=== PATIENT | female | born 2000 | race Caucasian/White ===

== ENCOUNTER 2024-11-11 16:34 | Outpatient (REF) | payer OTHER, MEDICARE, MEDICAID, SELFPAY ==
--- OUTSIDE RECORDS SUMMARY | 2024-11-11 16:42 | XMS_ITS | Encounter Summary ---
Author Organization [employer] Address [address] [place] [address] 7 [place] [address] Care Team Providers Care Audit Director Name Role Phone Ivy Mantilla NP Primary Care Provider [phone] Encounter Details Date Type Department Care Team ([facility] st Contact Info) Description 08/05/[address] [facility] [address] [place] [address] Ivy Mantilla NP [address] [place], [place] [phone] Social History Tobacco Use Types Packs/Day Years Used Date Smoking Tobacco: Never Smokeless Tobacco: Never Alcohol Use Standard Drinks/Week Comments Never 0 (1 standard drink = 0.6 oz pur e alcohol) Alcohol Answer Date Recorded How often do you have a drink containing alcohol ? 0 04/12/2024 How many drinks containing a lcohol do you have on a typical day when you are drinking? 0 04/12/2024 How often do you have six or more drinks on one occasion? 0 04/12/2024 Depression Answer Date Recorded Patient Health Questionnaire-9 Score 04/12/2024 Patient Health Questionnaire-9 Score 04/12/2024 Last PHQ-9: Questionnaire Data Not on file 0 04/12/2024 Housing Stability Answer Date Recorded What is your housing situation today? I have mandi veronica 04/12/[address] you li ve. Do you have problems with any of the following? None of the above 04/12/2024 Food Insecurity Answer Date Recorded Within the past 12 months, y ou worried that your food would run out before you got money to buy more: Often true 04/12/2024 Within the past 12 months,th e food you bought just didn't last and you didn't have enough money to get more: Often true Transportation Answer Date Recorded In the past 12 months, has l ack of transportation kept you from medical appts, meetings, work or from getting things needed for daily living? No 04/12/2024 Intimate Partner Violence Answer Date R ecorded Within the last year, have y ou been afraid of your partner or ex-partner? 2 04/12/2024 Within the last year, have y ou been humiliated or emotionally abused in other ways by your partner or ex-partner? 2 Within the last year, have y ou been kicked, hit, slapped, or otherwise physically hurt by your partner or ex-partner? 2 04/12/2024 Within the last year, have y ou been raped or forced to have any kind of sexual activity by your partner or ex-partner? 2 04/12/2024 Utilities Answer Date Recorded In the past 12 months, has t he electric, gas, oil or water company threatened to shut off services in your home? No 04/12/2024 Depression Answer Date Recorded Patient Health Questionnaire-2 Score 4 04/12/2024 Internet Access Answer Date Recorded Internet Access Q1 Yes 04/12/2024 Internet Access Q2 Not on file 04/12/2024 Comments No Sex and Gender Information Value Date Recorded Sex Assigned at Female 05/20/2022 3:57 PM EDT Legal Sex Female 3:57 PM EDT Gender Identity Non-Binary 05/20/2022 3:57 PM EDT Sexual Orientation Something else 05/20/2022 3: 57 PM EDT documented as of this encounter Miscellaneous Notes * Telephone Encounter - Jessica Woo LPN - 08/05/2024 4:38 PM EST Swetha to call Monday and check on referral again. If unable to find vna pt may want to consideramb day stay at hospital for infusions. * Telephone Encounter - Alie Bolden - 08/05/2024 4:18 PM EST Edilia called on vmail from [facility] asking for a call back as she has been speaking with nursing. documented in this encounter Plan of Treatment Upcoming Encounters Date Type Department Care Team (Late st Contact Info) Description 11/18/2024 12:40 PM EDT Office Visit [facility] [address] [place] [phone] Mckay Mueller AGNP [address] [place] [address] documented as of this encounter Visit Diagnoses Not on filedocumented in this encounter Additional Health Concerns Assessment Noted Time PHQ-9 Depression Total Score: 19 024 2:34 PM EDT documented as of this encounter Care Teams Audit Director Relationship Specialty Start Date End Date Ivy Mantilla NP [address] [place] [address] PCP - General Family Medicine 04/12/24 documented as of this encounter
--- OUTSIDE RECORDS SUMMARY | 2024-11-11 16:42 | XMS_ITS | Encounter Summary ---
Author Organization [employer] Address [address] [place] [address] 7 [place] [address] Care Team Providers Care Case Coordinator Name Role Phone Ivy Mantilla NP Primary Care Provider [phone] Encounter Details Date Type Department Care Team ([facility] Contact Info) Description 07/10/[address] [facility] [address] [place] [address] Ivy Mantilla NP [address] [place], [place] [phone] Social History Tobacco Use Types Packs/Day Years [...] the past 12 months, has t he [employer], gas, oil or water company threatened to [...] encounter Miscellaneous Notes * Telephone Encounter - Bernadine Deleon - 07/10/2024 11:30 AM EST Pt all set, appt today with CM * Telephone Encounter - Salena Malin - 07/10/2024 11:15 AM EST Symtoms started yesterday, covid + today. Is looking for either the anti-viral infusion treatment or paxlovid. Please call and advise [phone] documented in this encounter Plan of Treatment Upcoming Encounters Date Type Department Care Team (Late st Contact Info) Description 11/18/2024 12:40 PM EDT Office Visit [address] [address] NovemberMckay AGNP [address] [place] [address] documented as of this encounter Visit Diagnoses Not on filedocumented in this encounter Additional Health Concerns Assessment Noted Time PHQ-9 Depression Total Score: 19 024 2:34 PM EDT documented as of this encounter Care Teams Case Coordinator Relationship Specialty Start Date End Date Ivy Mantilla NP [address] [place] [address] PCP - General Family Medicine 04/12/24 documented as of this encounter
--- OUTSIDE RECORDS SUMMARY | 2024-11-11 16:43 | XMS_ITS | Encounter Summary ---
Author Organization [employer] Address [address] [place] [address] 7 [place] [address] Care Team Providers Care Automotive Parts Counterperson Name Role Phone Ivy Mantilla NP Primary Care Provider [phone] Encounter Details Date Type Department [facility] Description 04/24/2024 Telephone [facility] [address] [place] [address] Ivy Mantilla NP [address] [place], [place] [phone] Social History Tobacco Use Types Packs/Day Years [...] the past 12 months, has t he [employer], gas, oil or water company threatened to [...] encounter Miscellaneous Notes * Telephone Encounter - Britt Keys LPN - 04/25/2024 4:18 PM EDT Spoke to pt stated has josemanuel but there is a lapse in coverage for about a week. Pt is working on it. Eloy from [facility] notified. * Telephone Encounter - Thalia Gold - 04/25/2024 1:39 PM EDT Patient missed a call from nursing please call [phone] * Telephone Encounter - Britt Keys LPN - 04/24/2024 3:27 PM EDT Spoke to eloy from [facility] stated there nursing can place peripheral line she is going to put in request to insurance to see if they will cover for 1 L saline via gravity bag by flow regulator. once a week with there nursing to see if it would be covered by insurance. Will call back once it's run to determine pt benefit from insurance. * Telephone Encounter - Britt Keys LPN - 04/24/2024 3:12 PM EDT Referrals or nursing- Can you please call [facility]? I will be looking to order weekly IV saline infusions with a peripheral IV. I was hoping to confirm that they can do this. I spoke to someone already and they said to start the referral process so that we can find out if they can accept patients from our health center. I do have an order form that I can fill out and send if that will be helpful. Thanks Ivy Mantilla [employer]ICAL DISP[employer]ER Copied from duplicate task * Telephone Encounter - Solange Cruz - 04/24/2024 2:08 PM EDT Eloy left a voicemail following up on insurance referral says it appears to be for [employer] .states in order for them to chk the ins. Coverage they need to know the name of the [employer] andthey need to know the the method of administration . Call back#[phone] documented in this encounter Plan of Treatment Upcoming Encounters Date Type Department Care Team (Late st Contact Info) Description 11/18/2024 12:40 PM EDT Office Visit [address] [phone] Mckay Mueller AGNP [address] [place], [place] [phone] documented as of this encounter Visit Diagnoses Not on filedocumented in this encounter Additional Health Concerns Assessment Noted Time PHQ-9 Depression Total Score: 024 2:34 PM EDT documented as of this encounter Care Teams Automotive Parts Counterperson Relationship Specialty Start Date End Date Ivy Mantilla NP [address] [place] [address] PCP - General Family Medicine 04/12/24 documented as of this encounter
--- OUTSIDE RECORDS SUMMARY | 2024-11-11 16:43 | XMS_ITS | Encounter Summary ---
Author Organization [employer] Address [address] [place] [address] 7 [place] [address] Care Team Providers Care Contestant Coordinator Name Role Phone Ivy Mantilla NP Primary Care Provider [phone] Encounter Details Date Type Department Care Team ([facility] st Contact Info) Description 10/28/[address] [facility] [address] [place] [address] Ivy Mantilla NP [address] [place], [place] [phone] Social History Tobacco Use Types Packs/Day Years [...] encounter Miscellaneous Notes * Telephone Encounter - Thalia Gold - 10/28/2024 3:35 PM EDT Please call and or send over the fax requst they faxed to us for patients cancer screening and hpv vaxs to [phone] documented in this encounter Plan of Treatment Upcoming Encounters Date Type Department Care Team (Late st Contact Info) Description 11/18/2024 12:40 PM EDT Office Visit [facility] [address] [place] [phone] Mckay Mueller AGNP [address] [place], [place] [phone] documented as of this encounter Visit Diagnoses Not on filedocumented in this encounter Additional Health Concerns Assessment Noted Time PHQ-9 Depression Total Score: 19 024 2:34 PM EDT documented as of this encounter Care Teams Contestant Coordinator Relationship Specialty Start Date End Date Ivy Mantilla NP [address] [place] [address] PCP - General Family Medicine 04/12/24 documented as of this encounter
--- OUTSIDE RECORDS SUMMARY | 2024-11-11 16:43 | XMS_ITS | Patient Health Record ---
Author Organization [facility] Address [address] [address] Care Team Providers Care Tallier Name Role Phone Zaynab Tucker Primary Care Provider Alida Galan Unavailable [phone] Allergies Allergen (clinical drug ingredient) Drug/Non Drug Allergy documented on EMR Reaction Allergy Type Onset Date Status medroxyprogesterone Depo-Provera Unknown Drug Allergy Active cefazolin Cefazolin Unknown Drug Allergy Active gentamicin Gentamicin Unknown Drug Allergy Activ e Reason For Referral No Information Medications Medication SIG (Take, Route, Frequency, Duration) Notes Start Date End Date Status Dextroamphetamine Sulfate 10 MG 1 tablet in the morning Orally Once a day Active Famotidine 20 MG 1 tablet at bedtime as needed Orally Once a day Active Fludrocortisone Acetate 0.1 MG 1 tablet Orally Once a day Active Fluoxetine 20 MG 1 capsule Orally Onc e a day Active Sodium Chloride 1 GM as directed Orally Active buPROPion HCl ER (XL) 300 MG 1 tablet in the morning Orally Once a day Active traZODone HCl 100 MG 1 tablet at bedtime Orally Once a day Active Cetirizine HCl 10 MG 1 tablet Orally Onc e a day Active Cholecalciferol 50 MCG (1999 UT) 1 capsule Orally Once a day Active clonazePAM 1 MG 1 tablet Orally Once a day As needed Active Lansoprazole 30 MG 1 capsule before a meal Orally Once a day Active Levothyroxine Sodium 75 MCG 1 tablet in the morning on an empty stomach Orally Once a day Active Prucalopride Succinate 2 MG 1 tablet Ora lly Once a day Active Social History Tobacco Use: Social History Observation Description Date Details (start date - stop date) Former Smoker NA - NA Tobacco Control (Standard) Question Answer Notes Tobacco use: Former smoker Problems Problem Type SNOMED Code ICD Code Onset Dates Problem Status W/U Status Risk Notes Problem Dissociative identity disorder (71450335) 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) Active confirmed Problem Borderline personality disorder (22351982) Borderline personality disorder (F60.3) Active confirmed Problem Posttraumatic stress disorder (37080905) PTSD (post-traumatic stress disorder) (F43.10) Active confirmed Problem Nitza's disease (00073919) 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 Problem Vitamin D deficiency (62519897) Vitamin D insufficiency (E55.9) Active confirmed Problem Dysmenorrhea (485513567) Dysmenorrhea (N94.6) Active confirmed Problem Chest pain (01441745) Chest pain (R07.9) Active confirmed Problem Chronic fatigue syndrome (28345188) Chronic fatigue (R53.82) Active confirmed Problem Gastroesophageal reflux disease without esophagitis (783573846) Gastroesophageal reflux disease without esophagitis (K21.9) Active confirmed Problem Postural orthostatic tachycardia syndrome (disorder) (797547889) POTS (postural orthostatic tachycardia syndrome) (I49.8) Active confirmed Problem Genna-Danlos syndrome (928467553) 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 Plan Of Treatment Next Appt Details Provider Name:Alida diana, 11/21/2024 01:40:00 PM, [address] [place] [address], [facility] [address], [place], [address], Insurance Providers Payer Name Payer Address Payer Phone Subscriber Number Group Number Insured Name Patient Relationship to Insured Coverage Start Date Coverage End Date [facility] [address] [place] [address] [id number] Chanelle Vallecillo Self - patient is the insured [employer] [address] [place], [place] [id number] Chanelle Vallecillo Self - patient is the insured MEDICARE [address] [facility] [id number] Chanelle Vallecillo Self - patient is the insured Medical (General) History Medical History History ICD Code Chest pain R07.9 Chronic fatigue R53.82 Nitza's disease E06.3 PTSD (post-traumatic stress disorder) F4 3.10 Vitamin D insufficiency E55.9 Dissociative identity disorder F44.81 Gastroesophageal reflux disease without esophagitis K21.9 Genna-Danlos syndrome Q79.60 Dysmenorrhea N94.6 POTS (postural orthostatic tachycardia s yndrome) I49.8 Borderline personality disorder F60.3
--- OUTSIDE RECORDS SUMMARY | 2024-11-11 16:43 | XMS_ITS | Encounter Summary ---
Author Organization [employer] Address [address] [place] [address] Care Team Providers Care Drawer Liner Name Role Phone Ivy Mantilla TIN CONTAINER STRAIGHTENER Primary Care Provider [phone] Encounter Details Date Type Department Care Team ([facility] st Contact Info) Description 10/16/2024 Telephone [facility] [address] [address] Ivy Mantilla NP [address] [place] [phone] Social History Tobacco Use Types Packs/Day Years [...] is your housing situation today? I have mnadi veronica 04/12/[address] you [...] the past 12 months, has t he [employer], gas, oil or water company threatened to [...] encounter Miscellaneous Notes * Telephone Encounter - Ivy Mantilla NP - 10/16/2024 11:17 AM EDT See if patient can upload a picture of the site. Red and warm does not seem unusual. They should keep an eye for fever, swelling, pus or bleeding. Is it bandaged? * Telephone Encounter - Britt Keys LPN - 10/16/2024 10:42 AM EDT Pt had port placed yesterday stated area was purple and bruised yesterday but this am area around port is red and warm. Pt has a call out to place that placed port but is concerned about infection. Pt looking for provider recommendations. Pt denies fever or any other symptoms at this time. * Telephone Encounter - Divya Rory - 10/16/2024 10:31 AM EDT Patient is calling due to some concerns with a port that was just placed yesterday . Patient is going to send pictures in there MyChart . documented in this encounter Plan of Treatment Upcoming Encounters Date Type Department Care Team (Late st Contact Info) Description 11/18/2024 12:40 PM EDT Office Visit [facility] [address] [place] [phone] Mckay Mueller AGNP [address] [place] [address] documented as of this encounter Visit Diagnoses Not on filedocumented in this encounter Additional Health Concerns Assessment Noted Time PHQ-9 Depression Total Score: 19 024 2:34 PM EDT documented as of this encounter Care Teams Drawer Liner Relationship Specialty Start Date End Date Ivy Mantilla NP [address] [place] [address] PCP - General Family Medicine 04/12/24 documented as of this encounter
--- OUTSIDE RECORDS SUMMARY | 2024-11-11 16:43 | XMS_ITS ---
Author Organization [facility], [facility] Address [address] [facility] [address] [facility] [address] [place] [address] Care Team Providers Care Toe Puller Name Role Phone Zaynab Tucker Primary Care Provider Diane Alida Bee Unavailable [phone] REASON FOR VISIT new patient Encounters Encounter Location Date Provider Diagnosis [facility], [address] [place] [address] 03/21/2024 Alida Jain Plan Of Treatment Next Appt Details Provider Name:Alida diana, 11/21/2024 01:40:00 PM, [address] [facility], [address], [place], [address], Progress Notes * Nydia VALLECILLOCarinaOB:2000 (24 yo F)Acc No.[id number]:03/21/2024 Progress Notes Patient:?Chanelle VALLECILLO Provider:?Alida Jain D.O. :2000???Age:23 Y???Sex:Female D ate:03/21/2024 Address:[address] [place] [address] Pcp:Zaynab Hester Subjective: * Chief Complaints: * ???1. New patient. * Medical History:? Objective: * Vitals:? Assessment: Plan: * Treatment: * * Electronic signature of Jose Jain DO on 11/11/2024 at 04:43 PM EDT Sign off status: Pending * Provider:?Alida Jain D.O. Date:? Generated for Cheyenne vargas/Kenan/Dariana on:?11/11/2024 04:43 PM EDT
--- OUTSIDE RECORDS SUMMARY | 2024-11-11 16:43 | XMS_ITS | Encounter Summary ---
Author Organization [employer] Address [address] [place] [address] [address] [place] [address] Care Team Providers Care Binding Dyer Name Role Phone Ivy Mantilla NP Primary Care Provider [phone] Encounter Details Date Type Department Care Team ([facility] Contact Info) Description 04/30/2024 Telephone [facility] [address] [place] [address] Ivy Mantilla NP [address] [place], [place] [phone] Social History Tobacco Use Types Packs/Day Years [...] encounter Miscellaneous Notes * Telephone Encounter - Salena Malin - 04/30/2024 12:48 PM EDT Patient left a voicemail indicating they have been in touch with their insurance company and everything is up to date and active and that you may proceed with referral for home health care documented in this encounter Plan of Treatment Upcoming Encounters Date Type Department Care Team (Late st Contact Info) Description 11/18/2024 12:40 PM EDT Office Visit [facility] [address] [place] [address] Mckay Mueller AGNP [address] [place] [address] documented as of this encounter Visit Diagnoses Not on filedocumented in this encounter Additional Health Concerns Assessment Noted Time PHQ-9 Depression Total Score: 19 024 2:34 PM EDT documented as of this encounter Care Teams Binding Dyer Relationship Specialty Start Date End Date Ivy Mantilla NP [address] [place] [address] PCP - General Family Medicine 04/12/24 documented as of this encounter
--- OUTSIDE RECORDS SUMMARY | 2024-11-11 16:44 | XMS_ITS | Encounter Summary ---
Author Organization [employer] Address [address] [place] [address] [address] [place] [address] Care Team Providers Care Precinct Police Sergeant Name Role Phone Ivy Mantilla NP Primary Care Provider Encounter Details Date Type Department Care Team ([facility] Contact Info) Description 09/26/2024 Telephone [facility] [address] [place] [address] Ivy Mantilla NP [address] [place], [place] [phone] Social History Tobacco Use Types Packs/Day Years [...] encounter Miscellaneous Notes * Telephone Encounter - Maki Albert - 09/30/2024 10:14 AM EDT noted * Telephone Encounter - Yuridia Bustamante - 09/26/2024 9:25 AM EST [facility] is calling to decline the referral sent over, reasoning is because they are not contractedwith primary care and they don't do IV fluids. Call back if needed [phone] documented in this encounter Plan of Treatment Upcoming Encounters Date Type Department Care Team (Late st Contact Info) Description 11/18/2024 12:40 PM EDT Office Visit [facility] [address] [place] [phone] NovemberMckay AGNP [address] [place], [place] [phone] documented as of this encounter Visit Diagnoses Not on filedocumented in this encounter Additional Health Concerns Assessment Noted Time PHQ-9 Depression Total Score: 19 024 2:34 PM EDT documented as of this encounter Care Teams Precinct Police Sergeant Relationship Specialty Start Date End Date Ivy Mantilla NP [address] [place] [phone] PCP - General Family Medicine 04/12/24 documented as of this encounter
--- OUTSIDE RECORDS SUMMARY | 2024-11-11 16:44 | XMS_ITS | Clinical Summary ---
Author Organization [employer] Address [address] [place] [address] 7[address] [place] [address] Care Team Providers Care Group Home Paraprofessional Name Role Phone Ivy Mantilla NP Primary Care Provider [phone] Allergies Active Allergy Reactions Criticality Noted Date Comments Cefazolin Hives High 04/12/2024 Medroxyprogesterone Acetate Muscle Pain Medium 024 Worsened hypermobility Gentamicin Hives High 04/12/2024 Medications levothyroxine (Synthroid, Levoxyl) 75 MCG tablet Take 1 tablet by mouth in the morning. Not on Monday09/27/19 20 Active FLUoxetine (PROzac) 20 MG capsule TAKE 1 CAPSULE BY MOUTH EVERY DAY IN THE MORNING Active buPROPion XL (Wellbutrin XL) 300 MG 24 hr tablet Take 1 tablet by mouth Once per day. Active amphetamine-dextro amphetamine (Adderall) 10 MG tablet Take 1 tablet by mouth Once per day. Active lansoprazole (Prevacid) [address] capsule Take 1 capsule by mouth 2 times daily. 09/27/19 20 Active traZODone (Desyrel) 150 MG tablet Take 1 tablet by mouth at bedtime. 09/27/19 20 Active Motegrity 2 MG tablet Take 1 tablet by mouth Once per day. 03/18/20 24 Active famotidine (Pepcid) 20 MG tablet Take 20 mg by mouth 2 times daily. 12/13/19 24 Active clonazePAM (KlonoPIN) 0.5 MG tablet Take 0.5 mg by mouth if needed each day. 03/27/20 24 Active metoclopramide (Reglan) 5 MG tablet TAKE 1-2 TABLETS (5-10 MG TOTAL) BY MOUTH 3 (THREE) TIMES A DAY NEEDED (PRIOR TO MEALS). Active Ubrelvy 100 MG tablet TAKE 1 TABLET BY MOUTH DAILY NEEDED FOR MIGRAINE. 03/15/20 24 Active cyproheptadine (Periactin) 4 MG tablet Take 1 tablet by mouth 2 times daily. 03/27/20 24 Active cromolyn (Gastrocrom) 100 MG/5ML solution USE CONTENTS OF 2 VIALS 3 TIMES DAILY Active gabapentin (Neurontin) 300 MG/6ML solutionIndication s:Other chronic pain Take 3 mL (150 mg) by mouth at bedtime. 450 mL 04/12/20 24 Active cetirizine (ZyrTEC) 10 MG tablet Take 10 mg by mouth 2 times daily. Active Ergocalciferol (VITAMIN D2 PO) Take 2,000 Int'l Units/day by mouth Once per day. Active Magnesium 500 MG capsule Take 500 mg by mouth at bedtime. Active ORAL ELECTROLYTES PO Take 2 capsules by mouth 2 times daily. Vitassium Electrolyte Capsules extra strength 750mg sodium Active fludrocortisone (Florinef) 0.1 MG tabletIndications: POTS (postural orthostatic tachycardia syndrome) Take 1 tablet (0.1 mg) by mouth Once per day. 90 tablet 3 06/25/20 24 Active Lactic Ac-Citric Ac-Pot Bitart (Phexxi) 1.8-1-0.4 % gelIndications:Enc ounter for initial prescription of other contraceptives Insert 1 Application into the vagina if needed each day (insert up to 3hr before intercourse). 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 Justice Mederos, MGB Assessment & Plan (10/04/2024 12:47 PM EDT): - patient continues with supplemental electrolytes - will benefit from IV fluids to maintain fluid volume - encouraged continued use of electric wheelchair - check CBC and CMP to assess metabolic status Assessment & Plan (07/11/2024 1:56 PM EST): - patient will benefit from increased hydration which is needed by IV due to GI issues/ Will send home IV normal saline instructions to [facility] to follow up on referral Assessment & Plan (04/16/2024 8:47 AM EDT): - patient will need reliable intake of fluids and electrolytes, which is current disrupted by severe GI symptoms - they may also benefit from IV fluids, which they would prefer to get at home. - advised that I would look into trying to establish patient with [facility], a home infusion service Autism 04/12/2024 Overview (04/16/2024): Suspected, has high sensory and texture sensitivity Difficulty with social, communication, self-regulation, self-care Assessment & Plan (04/16/2024 9:00 AM EDT): - discussed briefly how this impacts their life - Meek is not interested in a formal diagnosis at this time but feel very confident they are autistic and that it has impacted their health and life dramatically Wheelchair dependent 04/12/2024 Overview (04/12/2024): Has a INTERLOCKER Assessment & Plan (04/16/2024 8:59 AM EDT): Need more INTERLOCKER care, gave some resource suggestions for finding additional INTERLOCKER care Other chronic pain 04/12/2024 Overview (04/16/2024): Primarily associated with EDS Assessment & Plan (07/11/2024 2:02 PM EST): - encouraged to have a longer trial of Gabapentin, starting with 150mg HS, can increase weekly as tolerated Assessment & Plan (04/16/2024 9:00 AM EDT): - 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 - Meek is well established with PT and I encouraged them to continue with this - will initiate Gabapentin as liquid for hopeful ease of digestion, discussed dosing titration options - agree that limiting NSAIDS is probably a good idea given GI issuse - Risks and side effects associated with the plan include potential side effects of Gabapentin such as dry mouth and leg swelling. The patient has been informed of these potential side effects. 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 Ree Tenorio MBA, PT Genetics consult: [facility], Dr. Umair Minor, visit notes from 03/24/2020, 11/19/2020, 08/18/2022 scanned to chart Assessment & Plan (05/19/2024 9:03 PM EDT): - will refer to [facility] for WC eval Gastroesophageal reflux disease 09/27/2019 Assessment & Plan (05/19/2024 9:03 PM EDT): - encouraged to continue with natropath and GI team - PCP to review notes from Dr. Reis regarding IV fluid recommendations. - Gap in insurance coverage noted, affecting referral process. Referral to [facility] needs to be restarted. Message sent to referrals team to reinitiate the referral to [facility]. Major depressive disorder, recurrent episode, mo derate 09/27/2019 Polycystic ovary syndrome 06/07/2019 Gastroparesis 06/03/2019 Overview (04/16/2024): Followed by [facility], Dr. Zuniga Experiences severe symptoms, has been hospitalized in the past Leads to chronic dehydration Assessment & Plan (10/04/2024 12:48 PM EDT): - chronic dehydration secondary to severe gastroparesis to be address with pending home IV fluids - checking labs to ensure metabolic stability - continue with GI specialty care Assessment & Plan (07/11/2024 1:55 PM EST): - constipation is improving with mestinon, will continue and follow up with Dr. Reis as scheduled - will send orders for home IV fluids today per Dr. Reis recommendations of 1L NS three times weekly Assessment & Plan (04/16/2024 8:59 AM EDT): - Meek does have severe gastroparesis which is complicating their other medical problems - they would benefit from sustained hydration status and close GI follow up which they have - they had talked about feeding tubes in the past but not currently being discussed Chronic post-traumatic stress disorder (PTSD) Overview (05/17/2024): Therapist: Aura Recinos [facility], [address] [place] [id number], Anxiety disorder 04/17/2018 Periodic limb movement disorder (PLMD) 8 Nitza's thyroiditis 01/31/2018 Encounters Date Type Department Care Team Description 10/28/[address] [phone] Ivy Mantilla NP 10/16/[address] [address] Ivy Mantilla NP 10/16/[address] [address] Ivy Mantilla NP 10/10/[address] [address] Britt Keys LPN 10/10/[address] [address] Ivy Mantilla NP 10/08/[address] [address] Ivy Mantilla, SUKHI 10/04/[address] [address] Ivy Mantilla, SUKHI 10/03/2024 2:40 PM EDT Office Visit [address] [address] Ivy Mantilla, SUKHI POTS (postural orthostatic tachycardia syndrome) (Primary Dx); Other fatigue; Need for vaccination; Gastroparesis 09/30/[address] [address] Ivy Mantilla, SUKHI 09/26/[address] [address] Ivy Mantilla, SUKHI 09/26/[address] [address] Ivy Mantilla, SUKHI 09/24/[address] [address] Ivy Mantilla, SUKHI 09/18/[address] [address] Ivy Mantilla, SUKHI 09/17/[address] [address] Britt Keys LPN 09/17/[address] [address] Ivy Mantilla NP 09/06/[address] [address] Ivy Mantilla, SUKHI 08/26/[address] [address] Ivy Mantilla, SUKHI from Last 3 Months Immunizations Name Administration Dates Next Due Influenza injectable quadriv alent preservative free 05/01/2023,04/13/2022,04/23/2020 Influenza, IIV3, injectable 05/06/2017 Meningococcal MCV4P ACYW-135 06/06/2017 Moderna Covid-19 Vaccine 12+ 10/03/2024 Pneumococcal Conjugate PCV 20 10/03/2024 Tdap 07/06/2021 Social History Tobacco Use Types Packs/Day Years Used Date Smoking Tobacco: Never Smokeless Tobacco: Never Tobacco Cessation:Counseling Given: Yes Alcohol Use Standard Drinks/Week Comments Never 0 [...] PM EDT Sexual Orientation Something else 05/20/2022 3 :57 PM EDT Last Filed Vital Signs Vital Sign Reading Time Taken Comments Blood Pressure 94/67 10/03/2024 3:07 PM EDT Pulse 92 10/03/2024 3:07 PM EDT Temperature 36.4 ??C (97.5 ??F) 10/03/2024 3:07 PM ED T Respiratory Rate - - Oxygen Saturation 99% 10/03/2024 3:07 PM EDT Inhaled Oxygen Concentration - - Weight 73 kg (161 lb) 10/03/2024 3:07 PM EDT Height 157.5 cm (5' 2 ) 06/25/2024 2:51 PM EST Body Mass Index 29.45 06/25/2024 2:51 PM EST Plan of Treatment Upcoming Encounters Date Type Department Care Team ([facility] st Contact Info) Description 11/18/2024 12:40 PM EDT Office Visit [facility] [address] [place] [address] Mckay Mueller AGNP [address] [place] [address] Health Maintenance Due Date Last Done Comments HIV Screening 1998 HPV Vaccines (1 - 3-dose series) 2013 Hepatitis C Screening 2016 Hepatitis B Vaccines (1 of 3 - 19+ 3-dose series) 2017 Pap Smear 2019 Alcohol/Substance Use Screening 04/12/2025 04/12/2024 Depression Screening 04/12/2025 04/12/2024, 04/12/20 24 Family Planning (PISQ) 04/12/2025 04/12/2024 SDOH Screening 04/12/2025 04/12/2024 Tobacco Screening 10/03/2025 10/03/2024 DTaP/Tdap/Td Vaccines (2 - Td or Tdap) 07/06/2031 07/06/2021 Zoster Vaccines (1 of 2) 2048 RSV Patients and Patients Aged 60 years or older (1 - 1-dose 75+ series) 2073 Meningococcal Vaccine Completed 06/06/2017 Influenza Vaccine Completed 03/28/2024, , 04/13/2022, Additional history exists COVID-19 Vaccine Completed 10/03/2024, 11/2023, 05/18/2023, Additional history exists Pneumococcal Vaccine: Pediatrics (0 to 5 Years) and At-Risk Patients (6 to 49) Years) Aged Out 10/03/2024 No longer eligible based on patient's age to complete this topic HIB Vaccines Aged Out No longer eligi ble based on patient's age to complete this topic Hepatitis A Vaccines Aged Out No long er eligible based on patient's age to complete this topic IPV Vaccines Aged Out No longer eligi ble based on patient's age to complete this topic RSV under 20 months Aged Out No longe r eligible based on patient's age to complete this topic Rotavirus Vaccines Aged Out No longer eligible based on patient's age to complete this topic Procedures Procedure Name Priority Date/Time Associated Diagnosis Comments AMB REFERRAL TO VISITING NURSE STAT 10/15/2024 Gastroparesis POTS (postural orthostatic tachycardia syndrome) HEPATITIS B SURFACE AB IMMUNITY, QN Routine 10/03/2024 3:56 PM EDT Need for vaccination MEASLES, MUMPS, AND RUBELLA (MMR) AB (IGG) PANEL, IMMUNE STATUS Routine 10/03/2024 3:56 PM EDT Need for vaccination VARICELLA ZOSTER ANTIBODY, IGG Routine 10/03/2024 3:56 PM EDT Need for vaccination TSH W/REFLEX TO FT4 Routine 10/03/2024 3 :56 PM EDT Other fatigue COMPREHENSIVE METABOLIC PANEL Routine 10/03/2024 3:56 PM EDT POTS (postural orthostatic tachycardia syndrome) CBC Routine 10/03/2024 3:56 PM EDT POTS (postural orthostatic tachycardia syndrome) from Last 3 Months Results * Referral to Visiting Nurse (10/15/2024) Ivy Mantilla NP OUTPATIENT REFERRAL ORDERABLES F inal Result * TSH with Reflex to Free T4 (10/03/2024 3:56 PM EDT) TSH w/Reflex to FT4 0.98 mIU/L [employer] [facility] Comment: ?Reference Range ?> or = 20 Years ??0.40-4.50 ? Ranges ?First trimester ?0.26-2.66 ?Second trimester ?? 0.55-2.73 ?Third trimester ?0.43-2.91 Blood Venous blood specimen / Unknown 10/03/2024 3:56 PM EDT 10/03/2024 3:56 PM EDT Narrative [facility] - 10/04/2024 8:57 AM EDT FASTING:UNKNOWN FASTING: UNKNOWN us Ivy Mantilla NP LAB BLOOD ORDERABLES Final Resul t [facility] [address], [place] [address] [facility] [facility] [address] [place] [address] * Measles, Mumps, and Rubella (MMR) Antibodies??(IgG) Panel, Immune Status (10/03/2024 3:56 PM EDT) Measles Ab IgG, Immune Status >300.00 AU/mL [facility] Comment: AU/mL ?Interpretation ----- ? <13.50 ? Not consistent with immunity 13.50-16.49 ?Equivocal >16.49 ? Consistent with immunity The presence of measles IgG suggests immunization or past or current infection with measles virus. For additional information, please refer to http://[employer].Kloudco/faq/AMR723 (This link is being provided for informational/ educational purposes only.) Mumps Virus Ab IgG, Immune Status 74.60 AU/mL [facility] Comment: AU/mL ? Interpretation ------- ? <9.00 ? Not consistent with immunity 9.00-10.99 ?Equivocal >10.99 ?Consistent with immunity The presence of mumps IgG antibody suggests immunization or past or current infection with mumps virus. Rubella Virus Ab IgG, Immune Status 1.84 Index [facility] Comment: ?Index ?Interpretation ?----- ?<0.90 ?Not consistent with immunity ?0.90-0.99 ?Equivocal ?> or = 1.00 ?Consistent with immunity The presence of rubella IgG antibody suggests immunization or past or current infection with rubella virus. Blood Venous blood specimen / Unknown 10/03/2024 3:56 PM EDT 10/03/2024 3:56 PM EDT Narrative [facility] - 10/04/2024 8:57 AM EDT FASTING:UNKNOWN FASTING: UNKNOWN Ivy Mantilla NP LAB BLOOD ORDERABLES Final Resul t Performing Organization Address [facility] de Phone Number [facility] [address] [place] [address], [place] [address] [facility] [place] [facility] [address] [place] [address] * Hepatitis B Surface Antibody Immunity, Quantitative (10/03/2024 3:56 PM EDT) Pathologist [facility] Hepatitis B Surface Antibody Immunity, QN 16 > OR = 10 mIU/mL [facility] [place] [facility] Comment: PATIENT HAS IMMUNITY TO HEPATITIS B VIRUS. For additional information, please refer to http://education.Villij/faq/XNN393 (This link is being provided for informational/ educational purposes only). Blood Venous blood specimen / Unknown 10/03/2024 3:56 PM EDT 10/03/2024 3:56 PM EDT Narrative [facility] - 10/04/2024 8:57 AM EDT FASTING:UNKNOWN FASTING: UNKNOWN Ivy Mantilla NP LAB BLOOD ORDERABLES Final Resul t Performing Organization Address [facility] de Phone Number [address], [place] [address] [facility] [place] [facility] [address] [place] [address] * (ABNORMAL) CBC (10/03/2024 3:56 PM EDT) Pathologist [facility] White Blood Cell Count 6.1 3.8 - 10.8 Thousand/ uL [facility] [place] [facility] Red Blood Cell Count 4.02 3.80 - 5.10 Million/u L [facility] [place] [facility] Hemoglobin 11.3(L) 11.7 - 15.5 g/dL [facility] [place] [facility] Hematocrit 36.0 35.0 - 45.0 % [facility] [place] [facility] MCV 89.6 80.0 - 100.0 fL [facility] [place] [facility] MCH 28.1 27.0 - 33.0 pg [facility] [place] [facility] MCHC 31.4(L) 32.0 - 36.0 g/dL [facility] [place] [facility] Comment: For adults, a slight decrease in the calculated MCHC value (in the range of 30 to 32 g/dL) is most likely not clinically significant; however, it should be interpreted with caution in correlation with other red cell parameters and the patient's clinical condition. RDW 13.3 11.0 - 15.0 % [facility] [place] [facility] Platelet Count 300 140 - 400 Thousand/ uL [facility] [place] [facility] MPV 11.4 7.5 - 12.5 fL [facility] [place] [facility] Blood Venous blood specimen / Unknown 10/03/2024 3:56 PM EDT 10/03/2024 3:56 PM EDT Narrative [facility] - 10/04/2024 8:57 AM EDT FASTING:UNKNOWN FASTING: UNKNOWN Ivy Mantilla NP LAB BLOOD ORDERABLES Final Resul t [facility] [address], [place] [address] [facility] [place] [facility] [address] [place] [address] * Varicella zoster antibody, IgG (10/03/2024 3:56 PM EDT) Varicella Zoster Virus Antibody IgG 3.74 S/CO [facility] Comment: ?Signal to Cut-off ? S/CO ?Interpretation ? --------- ?<1.00 ?Negative - Antibody not detected ?> or = 1.00 ?Positive - Antibody detected ?A positive result indicates that the patient ?has antibody to VZV but does not differentiate ?between an active or past infection. ?The clinical diagnosis must be interpreted in ?conjunction with the clinical signs and symptoms of ?the patient. This assay reliably measures immunity ?due to previous infection but may not be ?sensitive enough to detect antibodies induced by ?vaccination. Thus, a negative result in a vaccinated ?individual does not necessarily indicate ?susceptibility to VZV infection. A more sensitive ?test for vaccination-induced immunity is Varicella ?Zoster Virus Antibody Immunity Screen, ACIF. Blood Venous blood specimen / Unknown 10/03/2024 3:56 PM EDT 10/03/2024 3:56 PM EDT Narrative [facility] - 10/04/2024 8:57 AM EDT FASTING:UNKNOWN FASTING: UNKNOWN Ivy Mantilla NP LAB BLOOD ORDERABLES Final Resul t [facility] [address], [place] [address] [facility] [place] [facility] [address] [place] [address] * Comprehensive Metabolic Panel (10/03/2024 3:56 PM EDT) [facility] Signature Glucose 95 65 - 99 mg/dL [facility] Comment: ? Fasting reference interval Urea Nitrogen (BUN) 10 7 - 25 mg/dL [facility] [place] [facility] Creatinine, Serum 0.71 0.50 - 0.96 mg/dL [facility] [place] [facility] eGFR 120 > OR = 60 mL/min/1. 73m2 [facility] [place] [facility] BUN/Creatinine Ratio SEE NOTE: (calc) [facility] Comment: ?? Not Reported: BUN and Creatinine are within ?? reference range. ? Sodium 137 135 - 146 mmol/L [facility] Potassium 3.9 3.5 - 5.3 mmol/L [facility] Chloride 106 98 - 110 mmol/L [facility] Carbon Dioxide 25 20 - 32 mmol/L [facility] Calcium 9.4 8.6 - 10.2 mg/dL [facility] Protein, Total 6.9 6.1 - 8.1 g/dL [facility] Albumin 4.2 3.6 - 5.1 g/dL [facility] Globulin 2.7 1.9 - 3.7 g/dL (calc) [facility] Albumin/Globuli n Ratio 1.6 1.0 - 2.5 (calc) [facility] Bilirubin, Total 0.3 0.2 - 1.2 mg/dL [facility] Alkaline Phosphatase 64 31 - 125 U/L [facility] AST 14 10 - 30 U/L [facility] ALT 13 6 - 29 U/L [facility] Blood Venous blood specimen / Unknown 10/03/2024 3:56 PM EDT 10/03/2024 3:56 PM EDT Narrative [facility] - 10/04/2024 8:57 AM EDT FASTING:UNKNOWN FASTING: UNKNOWN us Ivy Mantilla NP LAB BLOOD ORDERABLES Final Resul t [facility] [address], [place] [address] [facility] [place] [facility] [address] [place] [address] from Last 3 Months Insurance [employer] MEDICARE [facility] ST[facility] Care Teams Group Home Paraprofessional Relationship Specialty Start Date End Date Ivy Mantilla NP [address] [place] [address] PCP - General Family Medicine 04/12/24
--- OUTSIDE RECORDS SUMMARY | 2024-11-11 16:44 | XMS_ITS | Encounter Summary ---
Author Organization [employer] Address [address] [place] [address] 7 [place] [address] Care Team Providers Care Cushion Assembler Name Role Phone Ivy Mantilla NP Primary Care Provider [phone] Encounter Details Date Type Department Care Team ([facility] Contact Info) Description 10/08/2024 Telephone [facility] [address] [place] [address] Ivy Mantilla NP [address] [place], [place] [phone] Social History Tobacco Use Types Packs/Day Years [...] * Telephone Encounter - Maki Albert - 10/15/2024 4:56 PM EDT Order refaxed * Telephone Encounter - Shelly Hooks - 10/08/2024 3:47 PM EDT Carlie left a voicemail today at 2.31pm stating that she can take the referral now and she apologizes for any confusion. The [facility] is now willing to send a pump to patients home as a one time thing so now [facility] is able to take the referral, if there are any questions you can call her back at [phone] option 2 for intake * Telephone Encounter - Salena Malin - 10/08/2024 2:59 PM EDT Option 2. They cannot accept the referral because [facility] will not be sending the a pump. They cannot accept unless there is a pump available. I any other questions please call [phone] documented in this encounter Plan of Treatment Upcoming Encounters Date Type Department Care Team (Late st Contact Info) Description 11/18/2024 12:40 PM EDT Office Visit [facility] [address] [place] [phone] Mckay Mueller AGNP [address] [place] [address] documented as of this encounter Visit Diagnoses Not on filedocumented in this encounter Additional Health Concerns Assessment Noted Time PHQ-9 Depression Total Score: 19 024 2:34 PM EDT documented as of this encounter Care Teams Cushion Assembler Relationship Specialty Start Date End Date Ivy Mantilla NP [address] [place] [address] PCP - General Family Medicine 04/12/24 documented as of this encounter
--- OUTSIDE RECORDS SUMMARY | 2024-11-11 16:44 | XMS_ITS ---
Author Organization [facility] [employer] [facility] Address [address] [place] [address] Care Team Providers Care Web Developer Programmer Name Role Phone Zaynab Tucker Primary Care Provider Diane Alida Bee Unavailable [phone] Allergies Allergen (clinical drug ingredient) Drug/Non Drug Allergy documented on EMR Reaction Allergy Type Onset Date Status medroxyprogesterone Depo-Provera Unknown Drug Allergy Active cefazolin Cefazolin Unknown Drug Allergy Active gentamicin Gentamicin Unknown Drug Allergy Activ e REASON FOR VISIT TALENT RECRUITER, eds, pots Medications Medication SIG (Take, Route, Frequency, Duration) Notes Start Date End Date Status Dextroamphetamine Sulfate 10 MG 1 tablet in the morning Orally Once a day Active buPROPion HCl ER (XL) 300 MG 1 tablet in the morning Orally Once a day Active Cetirizine HCl 10 MG 1 tablet Orally Onc e a day Active Cholecalciferol 50 MCG (1999) 1 capsule Orally Once a day Active [...] W/U Status Risk Notes Problem Chest pain (46171255) Chest pain (R07.9) Active confirmed Problem Chronic fatigue syndrome (06018285) Chronic fatigue (R53.82) Active confirmed Problem Nitza's disease (02470134) 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 Problem Posttraumatic stress disorder (62530288) PTSD (post-traumatic stress disorder) (F43.10) Active confirmed Problem Vitamin D deficiency (88233734) Vitamin D insufficiency (E55.9) Active confirmed Problem Dissociative identity disorder (45138353) 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) Active confirmed Problem Gastroesophageal reflux disease without esophagitis (276232022) Gastroesophageal reflux disease without esophagitis (K21.9) Active confirmed Problem Genna-Danlos syndrome (039464259) 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 Problem Dysmenorrhea (869830197) Dysmenorrhea (N94.6) Active confirmed Problem Postural orthostatic tachycardia syndrome (disorder) (958650240) POTS (postural orthostatic tachycardia syndrome) (I49.8) Active confirmed Problem Borderline personality disorder (83769502) Borderline personality disorder (F60.3) Active confirmed Encounters Encounter Location Date Provider Diagnosis [address] [address] 05/30/2024 Alida Jain Plan Of Treatment Next Appt Details Provider Name:Alida diana, 11/21/2024 01:40:00 PM, [address] [place] [address], [address], [address], Progress Notes * María Elena VALLECILLOOB:2000 (24 yo F)Acc No.[id number]:05/30/2024 Progress Notes Patient:?ROSAURA Chanelle Provider:?Alida Jain D.O. :2000???Age:23 Y???Sex:Female D ate:05/30/2024 Address:[address] [place], [place] [id number] Pcp:Zaynab Hester Subjective: * Chief Complaints: * ???1. 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 * Medical History:?Chest pain, Chronic fatigue, Nitza's disease, PTSD (post-traumatic stress disorder), Vitamin D insufficiency, Dissociative identity disorder, Gastroesophageal reflux disease without esophagitis, Genna-Danlos syndrome, Dysmenorrhea, POTS (postural orthostatic tachycardia syndrome), Borderline personality disorder. * Surgical History:?Denies Pas t Surgical History. * Hospitalization/Major Diagno stic Procedure:?Denies Past Hospitalization. * Family History:?Mother: unkn own, LupusFibrocystic breast disease.?Paternal Grand Mother: unknown, Breast cancer.?Paternal aunt: unknown, Breast cancer.? * Social History:?Tobacco Use:?Tobacco Control (Standard)?Tobacco use:?Former smoker.?Drugs/Alcohol:?Do you smoke marijuana?: Admits. Do you drink alcohol?: Yes, occasionally. * Medications:?Taking traZODon e HCl 100 MG Tablet 1 tablet at [...] reviewed and reconciled with the patient * Allergies:?Cefazolin, Gentam icin, Depo-Provera. Objective: * Vitals:? Assessment: Plan: * Treatment: * * Electronic signature of Jose Jain DO on 11/11/2024 at 04:44 PM EDT Sign off status: Pending * Provider:?Alida Jain D.O. Date:? Generated for Cheyenne vargas/Kenan/Dariana on:?11/11/2024 04:44 PM EDT
--- OUTSIDE RECORDS SUMMARY | 2024-11-11 16:44 | XMS_ITS | Encounter Summary ---
Author Organization [employer] Address [address] [place] [address] 7 [place] [address] Care Team Providers Care Litharge Mill Operator Name Role Phone Ivy Mantilla NP Primary Care Provider [phone] Encounter Details Date Type Department Care Team ([facility] Contact Info) Description 10/04/2024 Telephone [facility] [address] [place] [address] vIy Mantilla NP [address] [place], [place] [phone] Social History Tobacco Use Types Packs/Day Years [...] the past 12 months, has t he [employer], gas, oil or water company threatened to [...] encounter Miscellaneous Notes * Telephone Encounter - Kiara Brown - 10/04/2024 3:20 PM EDT Faxed * Telephone Encounter - Bernadine Deleon - 10/04/2024 9:56 AM EDT Note Is not signed yet * Telephone Encounter - Alie Bolden - 10/04/2024 9:42 AM EDT Winifred called from [employer] on vmail at 916 am asking that we fax over the OV from 10/03 so they can get started on our referral they received. option 2 documented in this encounter Plan of Treatment Upcoming Encounters Date Type Department Care Team (Late st Contact Info) Description 11/18/2024 12:40 PM EDT Office Visit [facility] [address] [place] [phone] NovemberMckay AGNP [address] [place], [place] [phone] documented as of this encounter Visit Diagnoses Not on filedocumented in this encounter Additional Health Concerns Assessment Noted Time PHQ-9 Depression Total Score: 19 024 2:34 PM EDT documented as of this encounter Care Teams Litharge Mill Operator Relationship Specialty Start Date End Date Ivy Mantilla NP [address] [place] [phone] PCP - General Family Medicine 04/12/24 documented as of this encounter
--- OUTSIDE RECORDS SUMMARY | 2024-11-11 16:44 | XMS_ITS | Encounter Summary ---
Author Organization [employer] Address [address] [facility] 7t [place] [address] Care Team Providers Care Dietitian Assistant Name Role Phone Ivy Mantilla TACTICAL INTELLIGENCE OFFICER Primary Care Provider Encounter Details Date Type Department Care Team ([facility] st Contact Info) Description 09/18/2024 Telephone [facility] [address] [address] Ivy Mantilla NP [address] [place] [address] Social History Tobacco Use Types Packs/Day Years [...] the past 12 months, has t he [employer], gas, oil or water company threatened to [...] Telephone Encounter - Ivy Mantilla NP - 09/24/2024 10:34 AM EST Ok perfect. Thanks for getting the info. * Telephone Encounter - Britt Keys LPN - 09/24/2024 9:42 AM EST Spoke to lina physical therapist for pt. Stated pt has been seen for pelvic floor exercises. Physical therapy stated they have done all they can do for pt at this time with exception to internal pelvic exam. They stated pt declined was not sure if this is something provider was planning to do or send to WAREHOUSE LOGISTICS MANAGER for. Pt has been educated on exercises. Stated nothing has changed with pt and pt has not had last two appointments, If something changes with pt they would be happy for an update. * Telephone Encounter - Yuridia Bustamante - 09/18/2024 11:56 AM EST Lina is calling the speak with MARLEY about the patient and some questions regarding an order sent over. Please advise Call back# [phone] Or after 3pm [phone] documented in this encounter Plan of Treatment Upcoming Encounters Date Type Department Care Team (Late st Contact Info) Description 11/18/2024 12:40 PM EDT Office Visit [facility] [address] [place] [phone] Mckay Mueller AGNP [address] [place] [address] documented as of this encounter Visit Diagnoses Not on filedocumented in this encounter Additional Health Concerns Assessment Noted Time PHQ-9 Depression Total Score: 19 024 2:34 PM EDT documented as of this encounter Care Teams Dietitian Assistant Relationship Specialty Start Date End Date Ivy Mantilla NP [address] [place] [address] PCP - General Family Medicine 04/12/24 documented as of this encounter
[2024-11-11 20:10] LABS: Alanine Aminotransferase 17 U/L (0-31); Alkaline Phosphatase 83 U/L (39-117); Anion Gap 13 (12-20); Aspartate Amino Transferase 17 U/L (5-31); Bilirubin Total 0.3 mg/dL (0.0-1.0); Blood Urea Nitrogen 7 mg/dL (9-16); Calcium 8.7 mg/dL (8.4-10.2); Carbon Dioxide 21 mmol/L (22-29); Chloride 110 mmol/L (96-108); Estimated Glomerular Filt Rate > 60; Glucose Random 68 mg/dL (60-115); Potassium 3.9 mmol/L (3.3-5.1); Sodium 140 mmol/L (135-145); Total Protein 6.9 g/dL (6.5-8.0)
== END 2024-11-11 16:35 | disposition home or self-care (01) ==
LOC: HO.LAB 16:34
PROVIDERS: PCP Nurse Practitioner Family; Visit Provider Nurse Practitioner Family
DX: G90.A Postural orthostatic tachycardia syndrome [POTS] (principal)
CPT/HCPCS: 36415; 80053

== ENCOUNTER 2024-11-18 16:25 | Outpatient (REF) | payer OTHER, MEDICARE, MEDICAID, SELFPAY ==
[2024-11-18 18:27] LABS: Anion Gap 11 (12-20)
[2024-11-18 18:32] LABS: Alanine Aminotransferase 14 U/L (0-31); Albumin Level 3.7 g/dL (3.5-5.0); Alkaline Phosphatase 75 U/L (39-117); Aspartate Amino Transferase 19 U/L (5-31); Bilirubin Total 0.3 mg/dL (0.0-1.0); Blood Urea Nitrogen 6 mg/dL (9-16); Calcium 8.4 mg/dL (8.4-10.2); Carbon Dioxide 25 mmol/L (22-29); Chloride 107 mmol/L (96-108); Estimated Glomerular Filt Rate > 60; Glucose Random 84 mg/dL (60-115); Sodium 139 mmol/L (135-145); Total Protein 6.6 g/dL (6.5-8.0)
--- OUTSIDE RECORDS SUMMARY | 2024-11-18 19:00 | XMS_ITS | Encounter Summary ---
Author Organization [employer] Address [address] [place] [address] 7 [place] [address] Care Team Providers Care Repairer Shoe Sticks Name Role Phone Ivy Mantilla NP Primary Care Provider [phone] Encounter Details Date Type Department Care Team ([facility] Contact Info) Description 07/10/[address] [facility] [address] [place] [address] Ivy Mantilla NP 102 [place], [place] [phone] Social History Tobacco Use Types Packs/Day Years [...] the past 12 months, has t he [employer], gas, oil or water company threatened to [...] treatment or paxlovid. Please call and advise [phone] documented in this encounter Plan of Treatment Upcoming Encounters Date Type Department Care Team (Late st Contact Info) Description 11/22/2024 9:40 AM EDT Office Visit [address] [phone] NovemberMckay AGNP [address] [place] [address] documented as of this encounter Visit Diagnoses Not on filedocumented in this encounter Additional Health Concerns Assessment Noted Time PHQ-9 Depression Total Score: 19 024 2:34 PM EDT documented as of this encounter Care Teams Repairer Shoe Sticks Relationship Specialty Start Date End Date Ivy Mantilla NP [address] [place] [address] PCP - General Family Medicine 04/12/24 documented as of this encounter
--- OUTSIDE RECORDS SUMMARY | 2024-11-18 19:00 | XMS_ITS ---
Author Organization [facility], [facility] Address [address] [facility] [address] [place] [address] Care Team Providers Care Spin Table Operator Name Role Phone Zaynab Tucker Primary Care Provider Diane Alida Bee Unavailable [phone] REASON FOR VISIT new patient Encounters Encounter Location Date Provider Diagnosis [facility], [address] [place] [address] 03/21/2024 Alida Jain Plan Of Treatment Next Appt Details Provider Name:Alida diana, 11/21/2024 01:40:00 PM, [address] [facility], [address], [place], [address], Progress Notes * ROSAURA María ElenaOB:2000 (24 yo F)Acc No.[id number]:03/21/2024 Progress Notes Patient:?ROSAURA Chanelle Provider:?Alida Jain D.O. :2000???Age:23 Y???Sex:Female D ate:03/21/2024 Address:[address] [place], [place] [address]-[id number] Pcp:Zaynab Hester Subjective: * Chief Complaints: * ???1. New patient. * Medical History:? Objective: * Vitals:? Assessment: Plan: * Treatment: * * Electronic signature of Jose Jain DO on 11/18/2024 at 07:00 PM EDT Sign off status: Pending * Provider:?Alida Jain D.O. Date:? Generated for Cheyenne vargas/Kenan/Dariana on:?11/18/2024 07:00 PM EDT
--- OUTSIDE RECORDS SUMMARY | 2024-11-18 19:00 | XMS_ITS | Encounter Summary ---
Author Organization [facility] [employer] Address [address] [place] [address] Care Team Providers Care Gas Main Fitter Name Role Phone Ivy Mantilla NP Primary Care Provider [phone] Reason for Referral * Consultation (Routine) - Authorized Specialty Diagnoses / Procedures Referred By Contact Referred To Contact Interventional Radiology Diagnoses Gastroparesis POTS (postural orthostatic tachycardia syndrome) Ivy Mantilla NP [address] [place] [address] Phone: tel:[phone] fax:[phone] [facility] [address] [place], [place] Phone: tel: fax: Referral ID Status Reason Start Date Expiration Date Visits Requested Visits Authorized [id number] Authorized Specialty Services Required 09/10/2024 09/10/2025 1 1 Encounter Details Date Type Department Care Team ([facility] Contact Info) Description 09/06/2024 Telephone [facility] [address] [place] [phone] Ivy Mantilla NP [address] [place] [address] Social History Tobacco Use Types Packs/Day Years [...] Answer Date Recorded Patient Health Questionnaire-9 Score 19 04/12/2024 Patient Health Questionnaire-9 Score 19 04/12/2024 Last PHQ-9: Questionnaire Data Not on [...] * Telephone Encounter - Maki Albert - 09/11/2024 4:11 PM EST Referral has been processed and faxed * Telephone Encounter - Maki Albert - 09/10/2024 8:33 AM EST Let Ivy know. She will process referral Accordingly * Telephone Encounter - Jagdeep Salvador - 09/06/2024 8:55 AM EST Provider they received a fax from Ivy Mantilla stating the patient needed either a picc or a port but they cannot make that call since they do not know the patient. They are asking we write an orderfor one or the other and fax it to them at [phone], their call back number is [phone] documented in this encounter Plan of Treatment Upcoming Encounters Date Type Department Care Team (Late st Contact Info) Description 11/22/2024 9:40 AM EDT Office Visit [address] [address] Mckay Mueller AGNP [address] [place] [address] Scheduled Referrals Name Type Priority Associated Diagnoses Order Schedule Referral to Interventional Radiology Outpatient Referral Routine Gastroparesis POTS (postural orthostatic tachycardia syndrome) Expected: 09/10/2024 (Approximate), Expires: 09/10/2025 documented as of this encounter Visit Diagnoses Diagnosis Gastroparesis- Primary POTS (postural orthostatic tachycardia syndrome) Unspecified tachycardia documented in this encounter Additional Health Concerns Assessment Noted Time PHQ-9 Depression Total Score: 19 024 2:34 PM EDT documented as of this encounter Care Teams Gas Main Fitter Relationship Specialty Start Date End Date Ivy Mantilla NP [address] [place] [address] PCP - General Family Medicine 04/12/24 documented as of this encounter
--- OUTSIDE RECORDS SUMMARY | 2024-11-18 19:00 | XMS_ITS | Encounter Summary ---
Author Organization [employer] Address [address] [place] [address] 7 [place] [address] Care Team Providers Care Member Of Parliament Name Role Phone Ivy Mantilla NP Primary Care Provider [phone] Encounter Details Date Type Department Care Team ([facility] Contact Info) Description 11/14/[address] [facility] 102 [place] [address] Ivy Mantilla NP 102 [place], [place] [phone] Social History Tobacco Use Types Packs/Day Years [...] the past 12 months, has t he [employer], gas, oil or water company threatened to [...] PM EDT documented as of this encounter Plan of Treatment Upcoming Encounters Date Type Department Care Team (Late st Contact Info) Description 11/22/2024 9:40 AM EDT Office Visit [facility] [address] [place] [phone] Mckay Mueller AGNP [address] [place] [address] documented as of this encounter Visit Diagnoses Not on filedocumented in this encounter Additional Health Concerns Assessment Noted Time PHQ-9 Depression Total Score: 19 024 2:34 PM EDT documented as of this encounter Care Teams Member Of Parliament Relationship Specialty Start Date End Date Ivy Mantilla NP [address] [place] [address] PCP - General Family Medicine 04/12/24 documented as of this encounter
--- OUTSIDE RECORDS SUMMARY | 2024-11-18 19:00 | XMS_ITS | Encounter Summary ---
Author Organization [employer] Address [address] [place] [address] 7 [place] [address] Care Team Providers Care Project Construction Assistant Manager Name Role Phone Ivy Mantilla NP Primary Care Provider [phone] Encounter Details Date Type Department Care Team ([facility] st Contact Info) Description 08/05/2024 Telephone [facility] [address] [place] [address] Ivy Mantilla NP 102 [place], [place] [phone] Social History Tobacco Use Types Packs/Day Years [...] PM EST Edilia called on vmail from [facility] asking for a call back as she has been speaking with nursing. documented in this encounter Plan of Treatment Upcoming Encounters Date Type Department Care Team (Late st Contact Info) Description 11/22/2024 9:40 AM EDT Office Visit [facility] [address] [place] [phone] Mckay Mueller AGNP [address] [place] [address] documented as of this encounter Visit Diagnoses Not on filedocumented in this encounter Additional Health Concerns Assessment Noted Time PHQ-9 Depression Total Score: 19 024 2:34 PM EDT documented as of this encounter Care Teams Project Construction Assistant Manager Relationship Specialty Start Date End Date Ivy Mantilla NP [address] [place] [address] PCP - General Family Medicine 04/12/24 documented as of this encounter
--- OUTSIDE RECORDS SUMMARY | 2024-11-18 19:00 | XMS_ITS | Encounter Summary ---
Author Organization [employer] Address [address] [place] [address] 7 [place] [address] Care Team Providers Care Toy Assembly Supervisor Name Role Phone Ivy Manitlla NP Primary Care Provider [phone] Encounter Details Date Type Department Care Team ([facility] st Contact Info) Description 11/15/2024 Orders Only [facility] [address] [place] [phone] Ivy Mantilla NP [address] [place], [place] [phone] POTS (postural orthostatic tachycardia syndrome) Social History Tobacco Use Types Packs/Day Years [...] the past 12 months, has t he [employer], gas, oil or water [employer] threatened to shut off services in your [...] Description 11/22/2024 9:40 AM EDT Office Visit [facility] [address] [place] [phone] Mckay Mueller AGNP [address] [place] [address] documented as of this encounter Visit Diagnoses Diagnosis POTS (postural orthostatic tachycardia syndrome) Unspecified tachycardia documented in this encounter Additional Health Concerns Assessment Noted Time PHQ-9 Depression Total Score: 19 024 2:34 PM EDT documented as of this encounter Care Teams Toy Assembly Supervisor Relationship Specialty Start Date End Date Ivy Mantilla NP [address] [place] [address] PCP - General Family Medicine 04/12/24 documented as of this encounter
--- OUTSIDE RECORDS SUMMARY | 2024-11-18 19:00 | XMS_ITS | Patient Health Record ---
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) Active confirmed Problem Borderline personality disorder (74159462) Borderline personality disorder (F60.3) Active confirmed Problem Posttraumatic stress disorder (86728921) PTSD (post-traumatic stress disorder) (F43.10) Active confirmed Problem Nitza's disease (12861951) 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 Problem Vitamin D deficiency (34756634) Vitamin D insufficiency (E55.9) Active confirmed Problem Dysmenorrhea (557055159) Dysmenorrhea (N94.6) Active confirmed Problem Chest pain (23274640) Chest pain (R07.9) Active confirmed Problem Chronic fatigue syndrome (88853263) Chronic fatigue (R53.82) Active confirmed Problem Gastroesophageal reflux disease without esophagitis (137325532) Gastroesophageal reflux disease without esophagitis (K21.9) Active confirmed Problem Postural orthostatic tachycardia syndrome (disorder) (204676862) POTS (postural orthostatic tachycardia syndrome) (I49.8) Active confirmed Problem Genna-Danlos syndrome (122258526) 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 Plan Of Treatment Next Appt Details Provider Name:Alida Velasquez lebron, 11/21/2024 01:40:00 PM, [address] [place] [address], [facility], [place], [address], Insurance Providers Payer Name Payer Address Payer Phone Subscriber Number Group Number Insured Name Patient Relationship to Insured Coverage Start Date Coverage End Date [facility] [address] [place] [address] [phone] [id number] Chanelle Vallecillo Self - patient is the insured [employer] [address] [place], [place] [id number] Chanelle Vallecillo Self - patient is the insured MEDICARE [address] [place], [place] [id number] Chanelle Vallecillo Self - patient is the [...]
--- OUTSIDE RECORDS SUMMARY | 2024-11-18 19:00 | XMS_ITS | Encounter Summary ---
Author Organization [employer] Address [address] [place] [address] 7 [place] [address] Care Team Providers Care Videotape Editor Name Role Phone Ivy Mantilla NP Primary Care Provider [phone] Encounter Details Date Type Department Care Team ([facility] Contact Info) Description 04/24/2024 Telephone [facility] [address] [place] [address] Ivy Mantilla NP [address] [place], [place] [phone] Social History Tobacco Use Types Packs/Day Years [...] the past 12 months, has t he [employer], gas, oil or water company threatened to [...] Pt is working on it. Eloy from [facility] notified. * Telephone Encounter - Thalia Gold - 04/25/2024 1:39 PM EDT Patient missed a call from nursing please call [phone] * Telephone Encounter - Britt Keys LPN - 04/24/2024 3:27 PM EDT Spoke to eloy from [facility] stated there nursing can place peripheral line [...] Referrals or nursing- Can you please call [facility]? I will be looking to order weekly [...] that will be helpful. Thanks Ivy Mantilla WAREHOUSE LOADER Copied from duplicate task * Telephone Encounter - Solange Cruz - 04/24/2024 2:08 PM EDT Eloy left a voicemail following up on insurance referral says it appears to be for [employer] .states in order for them to chk the ins. Coverage they need to know the name of the [employer] andthey need to know the the method of administration . Call back#[phone] documented in this encounter Plan of Treatment Upcoming Encounters Date Type Department Care Team (Late st Contact Info) Description 11/22/2024 9:40 AM EDT Office Visit [address] [phone] Mckay Mueller AGNP [address] [place], [place] [phone] documented as of this encounter Visit Diagnoses Not on filedocumented in this encounter Additional Health Concerns Assessment Noted Time PHQ-9 Depression Total Score: 024 2:34 PM EDT documented as of this encounter Care Teams Videotape Editor Relationship Specialty Start Date End Date Ivy Mantilla NP [address] [place] [address] PCP - General Family Medicine 04/12/24 documented as of this encounter
--- OUTSIDE RECORDS SUMMARY | 2024-11-18 19:01 | XMS_ITS | Encounter Summary ---
Author Organization [employer] Address [address] [facility] 7t [place] [address] Care Team Providers Care Service Station Helper Name Role Phone Ivy Mantilla BLADE BENDER FURNACE TENDER Primary Care Provider [phone] Encounter Details Date Type Department Care Team ([facility] st Contact Info) Description 10/16/2024 Telephone [facility] [address] [address] Ivy Mantilla NP [address] [place] [address] Social History Tobacco Use Types Packs/Day Years [...] the past 12 months, has t he [email or web address], gas, oil or water company threatened to [...] Description 11/22/2024 9:40 AM EDT Office Visit [facility][1] MEDICAL [address] [place] [phone] Mcaky Mueller AGNP [address] [place] [address] documented as of this encounter Visit Diagnoses Not on filedocumented in this encounter Additional Health Concerns Assessment Noted Time PHQ-9 Depression Total Score: 19 024 2:34 PM EDT documented as of this encounter Care Teams Service Station Helper Relationship Specialty Start Date End Date Ivy Mantilla NP [address] [place] [address] PCP - General Family Medicine 04/12/24 documented as of this encounter
--- OUTSIDE RECORDS SUMMARY | 2024-11-18 19:01 | XMS_ITS | Encounter Summary ---
Author Organization [employer] Address [address] [place] [address] 7 [place] [address] Care Team Providers Care Corporation Officer Name Role Phone Ivy Mantilla NP Primary Care Provider [phone] Encounter Details Date Type Department Care Team ([facility] Contact Info) Description 10/08/2024 [facility]phone [facility] [address] [place] [address] Ivy Mantilla NP [address] [place], [place] [phone] Social History Tobacco Use Types Packs/Day Years [...] and she apologizes for any confusion. The [facility] is now willing to send a pump to patients home as a one time thing so now [facility] is able to take the referral, if there are any questions you can call her back at [phone] option 2 for intake * Telephone Encounter - Salena Malin - 10/08/2024 2:59 PM EDT Option 2. They cannot accept the referral because [facility] will not be sending the a pump. They cannot accept unless there is a pump available. I any other questions please call [phone] documented in this encounter Plan of Treatment Upcoming Encounters Date Type Department Care Team (Late st Contact Info) Description 11/22/2024 9:40 AM EDT [facility] [address] [place] [phone] Mckay Mueller AGNP [address] [place] [address] documented as of this encounter Visit Diagnoses Not on filedocumented in this encounter Additional Health Concerns Assessment Noted Time PHQ-9 Depression Total Score: 19 024 2:34 PM EDT documented as of this encounter Care Teams Corporation Officer Relationship Specialty Start Date End Date Ivy Mantilla NP [address] [place] [address] PCP - General Family Medicine 04/12/24 documented as of this encounter
--- OUTSIDE RECORDS SUMMARY | 2024-11-18 19:01 | XMS_ITS | Encounter Summary ---
Author Organization [employer] Address [address] [place] [address] 7 [place] [address] Care Team Providers Care Self Storage Manager Name Role Phone Ivy Mantilla NP Primary Care Provider [phone] Encounter Details Date Type Department Care Team ([facility] st Contact Info) Description 10/28/2024 Telephone [facility] [address] [place] [address] Ivy Mantilla NP 102 [place], [place] [phone] Social History Tobacco Use Types Packs/Day Years [...] patients cancer screening and hpv vaxs to [phone] documented in this encounter Plan of Treatment Upcoming Encounters Date Type Department Care Team (Late st Contact Info) Description 11/22/2024 9:40 AM EDT Office Visit [facility] [address] [place] [phone] Mckay Mueller AGNP 102 [place], [place] [phone] documented as of this encounter Visit Diagnoses Not on filedocumented in this encounter Additional Health Concerns Assessment Noted Time PHQ-9 Depression Total Score: 19 024 2:34 PM EDT documented as of this encounter Care Teams Self Storage Manager Relationship Specialty Start Date End Date Ivy Mantilla NP 102 [place] [address] PCP - General Family Medicine 04/12/24 documented as of this encounter
--- OUTSIDE RECORDS SUMMARY | 2024-11-18 19:01 | XMS_ITS ---
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, 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, 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 Medications Medication SIG (Take, Route, [...] W/U Status Risk Notes Problem Chest pain (45201952) Chest pain (R07.9) Active confirmed Problem Chronic fatigue syndrome (51161794) Chronic fatigue (R53.82) Active confirmed Problem 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6) Active confirmed Problem Postural orthostatic tachycardia syndrome (disorder) (032115194) POTS (postural orthostatic tachycardia syndrome) (I49.8) Active confirmed Problem Borderline personality disorder (93972754) Borderline personality disorder (F60.3) Active confirmed Encounters Encounter Location Date Provider Diagnosis [address] [phone] 05/30/2024 Alida Jain Plan Of Treatment Next Appt Details Provider Name:Alida diana, 11/21/2024 01:40:00 PM, [address] [place] [address], [place] [address], [place], [address], Progress Notes * María Elena VALLECILLOOB:2000 (24 yo F)Acc No.[id number]:05/30/2024 Progress Notes Patient:?ROSAURA Chanelle Provider:?Alida Jain D.O. :2000???Age:23 Y???Sex:Female D ate:05/30/2024 Address:[address] [place] [address], [place] Pcp:Zaynab Hester Subjective: * Chief Complaints: * ???1. 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 * Medical History:?Chest pain, Chronic [...]
--- OUTSIDE RECORDS SUMMARY | 2024-11-18 19:01 | XMS_ITS | Encounter Summary ---
Author Organization [employer] Address [address] [facility] 7t [place] [address] Care Team Providers Care Mining Technician Name Role Phone Ivy Mantilla SOCIAL WORK THERAPIST Primary Care Provider [phone] Encounter Details Date Type Department Care Team ([facility] st Contact Info) Description 09/18/2024 Telephone [facility] [address] [address] Ivy Mantilla NP [address] [place] [address] Social History Tobacco Use Types Packs/Day Years [...] the past 12 months, has t he [employer], gas, oil or water company threatened to [...] was planning to do or send to [employer] for. Pt has been educated on exercises. [...] order sent over. Please advise Call back# [phone] Or after 3pm [phone] documented in this encounter Plan of Treatment Upcoming Encounters Date Type Department Care Team (Late st Contact Info) Description 11/22/2024 9:40 AM EDT Office Visit [facility] [address] [place] [phone] Mckay Mueller AGNP 102 [place] [address] documented as of this encounter Visit Diagnoses Not on filedocumented in this encounter Additional Health Concerns Assessment Noted Time PHQ-9 Depression Total Score: 19 024 2:34 PM EDT documented as of this encounter Care Teams Mining Technician Relationship Specialty Start Date End Date Ivy Mantilla NP [address] [place] [address] PCP - General Family Medicine 04/12/24 documented as of this encounter
--- OUTSIDE RECORDS SUMMARY | 2024-11-18 19:01 | XMS_ITS | Encounter Summary ---
Author Organization [employer] Address [address] [place] [address] 7 [place] [address] Care Team Providers Care Print Production Associate Name Role Phone Ivy Mantilla NP Primary Care Provider [phone] Encounter Details Date Type Department Care Team ([facility] Contact Info) Description 04/30/2024 Telephone [facility] [address] [place] [address] Ivy Mantilla NP 102 [place], [place] [phone] Social History Tobacco Use Types Packs/Day Years [...] Description 11/22/2024 9:40 AM EDT Office Visit [facility] [address] [place] [phone] Mckay Mueller AGNP 102 [place] [address] documented as of this encounter Visit Diagnoses Not on filedocumented in this encounter Additional Health Concerns Assessment Noted Time PHQ-9 Depression Total Score: 19 024 2:34 PM EDT documented as of this encounter Care Teams Print Production Associate Relationship Specialty Start Date End Date Ivy Mantilla NP [address] [place] [address] PCP - General Family Medicine 04/12/24 documented as of this encounter
--- OUTSIDE RECORDS SUMMARY | 2024-11-18 19:01 | XMS_ITS | Encounter Summary ---
Author Organization [employer] Address [address] [place] [address] 7 [place] [address] Care Team Providers Care Metallurgical Inspector Name Role Phone Ivy Mantilla NP Primary Care Provider [phone] Encounter Details Date Type Department Care Team ([facility] Contact Info) Description 10/04/[address] [facility] [address] [place] [address] Ivy Mantilla NP 102 [place], [place] [phone] Social History Tobacco Use Types Packs/Day Years [...] the past 12 months, has t he [employer], gas, oil or water company threatened to [...] 11/22/2024 9:40 AM EDT Office Visit [facility] [address] [place] [phone] NovemberMckay AGNP [address] [place], [place] [phone] documented as of this encounter Visit Diagnoses Not on filedocumented in this encounter Additional Health Concerns Assessment Noted Time PHQ-9 Depression Total Score: 19 024 2:34 PM EDT documented as of this encounter Care Teams Metallurgical Inspector Relationship Specialty Start Date End Date Ivy Mantilla NP [address] [place] [phone] PCP - General Family Medicine 04/12/24 documented as of this encounter
--- OUTSIDE RECORDS SUMMARY | 2024-11-18 19:01 | XMS_ITS | Clinical Summary ---
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 Justice Mederos, MGB Assessment & Plan [...] send home IV normal saline instructions to [facility] to follow up on referral Assessment & Plan (04/16/2024 8:47 AM EDT): - patient will need reliable intake of fluids and electrolytes, which is current disrupted by severe GI symptoms - they may also benefit from IV fluids, which they would prefer to get at home. - advised that I would look into trying to establish patient with [facility], a home infusion service Autism 04/12/2024 [...] Wheelchair dependent 04/12/2024 Overview (04/12/2024): Has a CELLARS SUPERVISOR Assessment & Plan (04/16/2024 8:59 AM EDT): Need more CELLARS SUPERVISOR care, gave some resource suggestions for finding additional CELLARS SUPERVISOR care Other chronic pain 04/12/2024 Overview (04/16/2024): [...] Hypermobile type, WC bound, many joint dislocations [facility]. Ree Tenorio MBA, PT Genetics consult: [facility], Dr. Umair Minor, visit notes from 03/24/2020, 11/19/2020, 08/18/2022 scanned to chart Assessment & Plan (05/19/2024 9:03 PM EDT): - will refer to [facility] for WC eval Gastroesophageal reflux disease 09/27/2019 Assessment & Plan (05/19/2024 9:03 PM EDT): - encouraged to continue with natropath and GI team - PCP to review notes from Dr. Reis regarding IV fluid recommendations. - Gap in insurance coverage noted, affecting referral process. Referral to [facility] needs to be restarted. Message sent to referrals team to reinitiate the referral to [facility]. Major depressive disorder, recurrent episode, mo derate 09/27/2019 Polycystic ovary syndrome 06/07/2019 Gastroparesis 06/03/2019 Overview (04/16/2024): Followed by [facility], Dr. Zuniga Experiences severe symptoms, has [...] disorder (PTSD) Overview (05/17/2024): Therapist: Aura Recinos [facility], [address] [place] [address], Anxiety disorder 04/17/2018 Periodic limb movement disorder (PLMD) 8 Nitza's thyroiditis 01/31/2018 Encounters Date Type Department Care Team Description 11/15/2024 Orders Only [address] [phone] Ivy Mantilla NP POTS (postural orthostatic tachycardia syndrome) 11/14/[address] [address] Ivy Mantilla NP 10/28/[address] [address] Ivy Mantilla NP 10/16/[address] [address] Ivy Mantilla NP 10/16/[address] [address] Ivy Mantilla NP 10/10/[address] [phone] Britt Keys LPN 10/10/[address] [address] Ivy Mantilla, SUKHI 10/08/[address] [address] Ivy Mantilla, SUKHI 10/04/[address] [phone] Ivy Mantilla, SUKHI 10/03/2024 2:40 PM EDT Office Visit [address] [address] Ivy Mantilla, SUKHI POTS (postural orthostatic tachycardia syndrome) (Primary Dx); Other fatigue; Need for vaccination; Gastroparesis 09/30/[address] [address] Ivy Mantilla, SUKHI 09/26/[address] [address] Ivy Mantilla, SUKHI 09/26/[address] [address] Ivy Mantilla, C DEVELOPER 09/24/[address] [address] Ivy Mantilla, SUKHI 09/18/[address] [phone] Ivy Mantilla, SUKHI 09/17/[address] [address] Britt Keys LPN 09/17/[address] [address] Ivy Mantilla, SUKHI 09/06/[address] [address] Ivy Mantilla, SUKHI 08/26/[address] [phone] Ivy Mantilla NP from Last 3 Months Immunizations Name Administration [...] the past 12 months, has t he [employer], gas, oil or water [employer] threatened to shut off services in your [...] Something else 05/20/2022 3: 57 PM EDT Last Filed Vital Signs Vital [...] Description 11/22/2024 9:40 AM EDT Office Visit [facility] [address] [place] [phone] Mckay Mueller AGNP [address] [place] [address] Health Maintenance Due Date Last Done Comments HIV Screening 1998 HPV Vaccines (1 - 3-dose series) 2013 Hepatitis C Screening 2016 Hepatitis B Vaccines (1 of 3 - 19+ 3-dose series) 2017 Pap Smear 2019 Alcohol/Substance Use Screening 04/12/2025 04/12/2024 Depression Screening 04/12/2025 04/12/2024, 04/12/20 Family Planning (PISQ) 04/12/2025 04/12/2024 SDOH Screening [...] Results * Referral to Visiting Nurse (10/15/2024) us Ivy Mantilla NP OUTPATIENT REFERRAL ORDERABLES F inal Result * TSH with Reflex to Free T4 (10/03/2024 3:56 PM EDT) TSH w/Reflex to FT4 0.98 mIU/L [facility] Comment: ?Reference Range ?> or = 20 Years ??0.40-4.50 ? Ranges ?First trimester ?0.26-2.66 ?Second trimester ?? 0.55-2.73 ?Third trimester ?0.43-2.91 Blood Venous blood specimen / Unknown 10/03/2024 3:56 PM EDT 10/03/2024 3:56 PM EDT Narrative [facility] - 10/04/2024 8:57 AM EDT FASTING:UNKNOWN FASTING: UNKNOWN us Ivy Mantilla NP LAB BLOOD ORDERABLES Final Resul t [facility] [address] [facility], [place] [address] [employer] [address] [place] [address] * Measles, Mumps, and Rubella (MMR) Antibodies??(IgG) Panel, Immune Status (10/03/2024 3:56 PM EDT) Measles Ab IgG, Immune Status >300.00 AU/mL [facility] Comment: AU/mL ?Interpretation ----- ? <13.50 ? Not consistent with immunity 13.50-16.49 ?Equivocal >16.49 ? Consistent with immunity The presence of measles IgG suggests immunization or past or current infection with measles virus. For additional information, please refer to http://[employer]/faq/SAT255 (This link is being provided for informational/ educational purposes only.) Mumps Virus Ab IgG, Immune Status 74.60 AU/mL [facility] Comment: AU/mL ? Interpretation ------- ? <9.00 ? Not consistent with immunity 9.00-10.99 ?Equivocal >10.99 ?Consistent with immunity The presence of mumps IgG antibody suggests immunization or past or current infection with mumps virus. Rubella Virus Ab IgG, Immune Status 1.84 Index [facility] Comment: ?Index ?Interpretation ?----- ?<0.90 ?Not consistent [...] ORDERABLES Final Resul t Performing Organization Address [facility] de Phone Number [address] [address] [employer] [address] [place] [phone] * Hepatitis B Surface Antibody Immunity, Quantitative (10/03/2024 3:56 PM EDT) Pathologist [facility] Hepatitis B Surface Antibody Immunity, QN 16 > OR = 10 mIU/mL [employer] Comment: PATIENT HAS IMMUNITY TO HEPATITIS B VIRUS. For additional information, please refer to http://education.[employer]/faq/PNS408 (This link is being provided for informational/ educational purposes only). Blood Venous blood specimen / Unknown 10/03/2024 3:56 PM EDT 10/03/2024 3:56 PM EDT Narrative [facility] - 10/04/2024 8:57 AM EDT FASTING:UNKNOWN FASTING: UNKNOWN Ivy Mantilla NP LAB BLOOD ORDERABLES Final Resul t Performing Organization Address [facility] de Phone Number [address] [phone] [employer] [address] [place] [phone] * (ABNORMAL) CBC (10/03/2024 3:56 PM EDT) White Blood Cell Count 6.1 3.8 - 10.8 Thousand/ uL [facility] [place] [facility] Red Blood Cell Count 4.02 3.80 - 5.10 Million/u L [facility] [place] [facility] Hemoglobin 11.3(L) 11.7 - 15.5 g/dL [facility] Hematocrit 36.0 35.0 - 45.0 % [facility] MCV 89.6 80.0 - 100.0 fL [facility] MCH 28.1 27.0 - 33.0 pg [facility] MCHC 31.4(L) 32.0 - 36.0 g/dL [facility] Comment: For adults, a slight decrease in the calculated MCHC value (in the range of 30 to 32 g/dL) is most likely not clinically significant; however, it should be interpreted with caution in correlation with other red cell parameters and the patient's clinical condition. RDW 13.3 11.0 - 15.0 % [employer] [facility] Platelet Count 300 140 - 400 Thousand/ uL [facility] MPV 11.4 7.5 - 12.5 fL [facility] Blood Venous blood specimen / Unknown 10/03/2024 3:56 PM EDT 10/03/2024 3:56 PM EDT Narrative [facility] - 10/04/2024 8:57 AM EDT FASTING:UNKNOWN FASTING: UNKNOWN Ivy Mantilla NP LAB BLOOD ORDERABLES Final Resul t [facility] [address] [place] [address] [facility] [address] [place] [address] * Varicella zoster antibody, IgG (10/03/2024 3:56 PM EDT) Pathologist [facility] Varicella Zoster Virus Antibody IgG 3.74 S/CO [facility] [employer] [facility] Comment: ?Signal to Cut-off ? S/CO ?Interpretation [...] ORDERABLES Final Resul t Performing Organization Address City/State/[facility] Co de Phone Number [facility] [address], [place] [address] [employer] [address] [place] [address] * Comprehensive Metabolic Panel (10/03/2024 3:56 PM EDT) [facility] Signature Glucose 95 65 - 99 mg/dL [facility] Comment: ? Fasting reference interval Urea Nitrogen (BUN) 10 7 - 25 mg/dL [facility] Creatinine, Serum 0.71 0.50 - 0.96 mg/dL [facility] eGFR 120 > OR = 60 mL/min/1. 73m2 [facility] BUN/Creatinine Ratio SEE NOTE: 6 22 (calc) [facility] Comment: ?? Not Reported: BUN and Creatinine are within ?? reference range. ? Sodium 137 135 - 146 mmol/L [facility] Potassium 3.9 3.5 - 5.3 mmol/L [facility] Chloride 106 98 - 110 mmol/L [facility] Carbon Dioxide 25 20 - 32 mmol/L [facility] Calcium 9.4 8.6 - 10.2 mg/dL [facility] Protein, Total 6.9 6.1 - 8.1 g/dL [facility] Albumin 4.2 3.6 - 5.1 g/dL [facility] Globulin 2.7 1.9 - 3.7 g/dL (calc) [facility] Albumin/Globuli n Ratio 1.6 1.0 - 2.5 (calc) [facility] Bilirubin, Total 0.3 0.2 - 1.2 mg/dL [facility] Alkaline Phosphatase 64 31 - 125 U/L [facility] AST 14 10 - 30 U/L [facility] [place] [facility] ALT 13 6 - 29 U/L [facility] Blood Venous blood specimen / Unknown 10/03/2024 3:56 PM EDT 10/03/2024 3:56 PM EDT Narrative [facility] - 10/04/2024 8:57 AM EDT FASTING:UNKNOWN FASTING: UNKNOWN us Ivy Mantilla NP LAB BLOOD ORDERABLES Final Resul t [facility] [address], [place] [address] [employer] [address] [place] [address] from Last 3 Months Insurance [employer] PPO MEDICARE [facility] STANDARD Care Teams Regional Property Manager Relationship Specialty Start Date End Date Ivy Mantilla NP [address] [place] [address] PCP - General Family Medicine 04/12/24
--- OUTSIDE RECORDS SUMMARY | 2024-11-18 19:01 | XMS_ITS | Encounter Summary ---
Author Organization [employer] Address [address] [place] [address] 7 [place] [address] Care Team Providers Care Collection Development Librarian Name Role Phone Ivy Mantilla NP Primary Care Provider Encounter Details Date Type Department Care Team ([facility] Contact Info) Description 09/26/2024 Telephone [facility] [address] [place] [address] Ivy Mantilla NP [address] [place], [place] [phone] Social History Tobacco Use Types Packs/Day Years [...] Yuridia Bustamante - 09/26/2024 9:25 AM EST Tim is calling to decline the referral sent over, reasoning is because they are not contractedwith primary care and they don't do IV fluids. Call back if needed [phone] documented in this encounter Plan of Treatment Upcoming Encounters Date Type Department Care Team (Late st Contact Info) Description 11/22/2024 9:40 AM EDT Office Visit [facility] [address] [place] [phone] NovemberMckay AGNP [address] [place], [place] [phone] documented as of this encounter Visit Diagnoses Not on filedocumented in this encounter Additional Health Concerns Assessment Noted Time PHQ-9 Depression Total Score: 19 024 2:34 PM EDT documented as of this encounter Care Teams Collection Development Librarian Relationship Specialty Start Date End Date Ivy Mantilla NP [address] [place] [address] PCP - General Family Medicine 04/12/24 documented as of this encounter
== END 2024-11-18 16:26 | disposition home or self-care (01) ==
LOC: HO.LAB 16:25
PROVIDERS: PCP Nurse Practitioner Family; Visit Provider Nurse Practitioner Family
DX: G90.A Postural orthostatic tachycardia syndrome [POTS] (principal)
CPT/HCPCS: 36415; 80053

== ENCOUNTER 2024-11-25 16:17 | Outpatient (REF) | payer OTHER, MEDICARE, MEDICAID, SELFPAY ==
--- OUTSIDE RECORDS SUMMARY | 2024-11-25 17:35 | XMS_ITS | Encounter Summary ---
Author Organization [employer] Address [address] [place] [address] 7 [place] [address] Care Team Providers Care Ict Business Analyst Name Role Phone Ivy Mantilla NP Primary Care Provider [phone] Encounter Details Date Type Department Care Team ([facility] Contact Info) Description 07/10/2024 Telephone [facility] [address] [place] [address] Ivy Mantilla NP [address] [place], [place] [phone] Social History Tobacco Use Types Packs/Day Years [...] the past 12 months, has t he [employer], gas, oil or water company threatened to [...] treatment or paxlovid. Please call and advise [phone] documented in this encounter Plan of Treatment Not on file documented as of this encounter Visit Diagnoses Not on filedocumented in this encounter Additional Health Concerns Assessment Noted Time PHQ-9 Depression Total Score: 19 024 2:34 PM EDT documented as of this encounter Care Teams Ict Business Analyst Relationship Specialty Start Date End Date Ivy Mantilla NP [address] [place] [address] PCP - General Family Medicine 04/12/24 documented as of this encounter
--- OUTSIDE RECORDS SUMMARY | 2024-11-25 17:35 | XMS_ITS | Encounter Summary ---
Author Organization [facility] [employer] Address [address] [place] [address] Care Team Providers Care Risk Assessment Analyst Name Role Phone Ivy Mantilla NP Primary Care Provider [phone] Reason for Referral * Consultation (Routine) - Authorized Specialty Diagnoses / Procedures Referred By Contact Referred To Contact Interventional Radiology Diagnoses Gastroparesis POTS (postural orthostatic tachycardia syndrome) Ivy Mantilla NP [address] [place] [address] Phone: tel:[phone] fax:[phone] [facility] [address] [place], [place] Phone: tel: fax: Referral ID Status Reason Start Date Expiration Date Visits Requested Visits Authorized [id number] Authorized Specialty Services Required 09/10/2024 09/10/2025 1 1 Encounter Details Date Type Department Care Team ([facility] Contact Info) Description 09/06/2024 Telephone [facility] [address] [place] [phone] Ivy Mantilla NP [address] [place] [phone] Social History Tobacco Use Types Packs/Day Years [...] referral Accordingly * Telephone Encounter - Jagdeep Salvadro - 09/06/2024 8:55 AM EST Provider they received a fax from Ivy Mantilla stating the patient needed either a picc or a port but they cannot make that call since they do not know the patient. They are asking we write an orderfor one or the other and fax it to them at [phone], their call back number is [phone] documented in this encounter Plan of Treatment Scheduled Referrals Name Type Priority Associated Diagnoses [...] documented as of this encounter Care Teams Risk Assessment Analyst Relationship Specialty Start Date End Date Ivy Mantilla NP [address] [place] [address] PCP - General Family Medicine 04/12/24 documented as of this encounter
--- OUTSIDE RECORDS SUMMARY | 2024-11-25 17:35 | XMS_ITS | Encounter Summary ---
Author Organization [employer] Address [address] [place] [address] 7 [place] [address] Care Team Providers Care Plumber'S Helper Name Role Phone Ivy Mantilla NP Primary Care Provider [phone] Encounter Details Date Type Department Care Team ([facility] st Contact Info) Description 08/05/2024 Telephone [facility] [address] [place] [address] Ivy Mantilla NP [address] [place], [place] [phone] Social History Tobacco Use Types Packs/Day Years [...] PM EST Edilia called on vmail from [facility] asking for a call back as she has been speaking with nursing. documented in this encounter Plan of Treatment Not on file documented as of this encounter Visit Diagnoses Not on filedocumented in this encounter Additional Health Concerns Assessment Noted Time PHQ-9 Depression Total Score: 024 2:34 PM EDT documented as of this encounter Care Teams Plumber'S Helper Relationship Specialty Start Date End Date Ivy Mantilla NP [address] [place] [address] PCP - General Family Medicine 04/12/24 documented as of this encounter
--- OUTSIDE RECORDS SUMMARY | 2024-11-25 17:36 | XMS_ITS | Clinical Summary ---
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 Justice Mederos, MGB Assessment & Plan [...] send home IV normal saline instructions to [facility] to follow up on referral Assessment & Plan (04/16/2024 8:47 AM EDT): - patient will need reliable intake of fluids and electrolytes, which is current disrupted by severe GI symptoms - they may also benefit from IV fluids, which they would prefer to get at home. - advised that I would look into trying to establish patient with [facility], a home infusion service Autism 04/12/2024 Overview [...] Wheelchair dependent 04/12/2024 Overview (04/12/2024): Has a TOOLROOM ATTENDANT Assessment & Plan (04/16/2024 8:59 AM EDT): Need more TOOLROOM ATTENDANT care, gave some resource suggestions for finding additional TOOLROOM ATTENDANT care Other chronic pain 04/12/2024 Overview (04/16/2024): [...] Hypermobile type, WC bound, many joint dislocations [facility] [employer] [employer], [facility]. Ree Tenorio MBA, PT Genetics consult: [facility], Dr. Umair Minor, visit notes from 03/24/2020, 11/19/2020, 08/18/2022 scanned to chart Assessment & Plan (05/19/2024 9:03 PM EDT): - will refer to [facility] for WC eval Gastroesophageal reflux disease 09/27/2019 Assessment & Plan (05/19/2024 9:03 PM EDT): - encouraged to continue with natropath and GI team - PCP to review notes from Dr. Reis regarding IV fluid recommendations. - Gap in insurance coverage noted, affecting referral process. Referral to [facility] needs to be restarted. Message sent to referrals team to reinitiate the referral to [facility]. Major depressive disorder, recurrent episode, mo derate 09/27/2019 Polycystic ovary syndrome 06/07/2019 Gastroparesis 06/03/2019 Overview (04/16/2024): Followed by [facility], Dr. 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 Encounters Date Type Department Care Team Description 11/22/2024 9:40 AM EDT Office Visit [address] [phone] Mckay Mueller AGNP Encounter for postoperative care (Primary Dx) 11/22/2024 Orders Only [address] [address] Ivy Mantilla NP POTS (postural orthostatic tachycardia syndrome) 11/20/[address] [address] Ivy Mantilla NP Cervical Cancer Screening 11/15/2024 Orders Only [address] [address] Ivy Mantilla NP POTS (postural orthostatic tachycardia syndrome) 11/14/[address] [address] Ivy Mantilla EVENT SET UP SPECIALIST 10/28/[address] [address] Ivy Mantilla, EVENT SET UP SPECIALIST 10/16/[address] [place] [address] Ivy Mantilla, EVENT SET UP SPECIALIST 10/16/[address] [address] Ivy Mantilla, SUKHI 10/10/[address] [address] Britt Keys LPN 10/10/[address] [address] Ivy Mantilla, SUKHI 10/08/[address] [address] Ivy Mantilla, SUKHI 10/04/[address] [address] Ivy Mantilla, SUKHI 10/03/2024 2:40 PM EDT Office Visit [address] [address] Ivy Mantilla, SUKHI POTS (postural orthostatic tachycardia syndrome) (Primary Dx); Other fatigue; Need for vaccination; Gastroparesis 09/30/[address] [address] Ivy Mantilla, SUKHI 09/26/[address] [address] Ivy Mantilla, SUKHI 09/26/[address] [address] Ivy Mantilla, SUKHI 09/24/[address] [address] Ivy Mantilla, SUKHI 09/18/[address] [address] Ivy Mantilla NP 09/17/[address] [address] Britt Keys LPN 09/17/[address] [address] Ivy Mantilla NP 09/06/[address] [address] Ivy Mantilla, SUKHI from Last 3 Months [...] Sign Reading Time Taken Comments Blood Pressure 110/80 11/22/2024 9:48 AM EDT Pulse 82 11/22/2024 9:48 AM EDT Temperature 36.1 ??C (96.9 ??F) 11/22/2024 9:48 AM ED T Respiratory Rate - - Oxygen Saturation 98% 11/22/2024 9:48 AM EDT Inhaled Oxygen Concentration - - Weight 73 kg (161 lb) 10/03/2024 3:07 PM EDT Height 157.5 cm (5' 2 ) 06/25/2024 2:51 PM EST Body Mass Index 29.45 06/25/2024 2:51 PM EST Plan of Treatment Health Maintenance Due Date Last Done Comments [...] EDT) TSH w/Reflex to FT4 0.98 mIU/L [facility] Comment: ?Reference Range ?> or = 20 Years ??0.40-4.50 ? Ranges ?First trimester ?0.26-2.66 ?Second trimester ?? 0.55-2.73 ?Third trimester ?0.43-2.91 Blood Venous blood specimen / Unknown 10/03/2024 3:56 PM EDT 10/03/2024 3:56 PM EDT Narrative [facility] - 10/04/2024 8:57 AM EDT FASTING:UNKNOWN FASTING: UNKNOWN us Ivy Mantilla EVENT SET UP SPECIALIST LAB BLOOD ORDERABLES Final Resul t [facility] [address] [facility], [facility], [place] [address] [employer] [address] [place] [address] * Measles, Mumps, and Rubella (MMR) Antibodies??(IgG) Panel, Immune Status (10/03/2024 3:56 PM EDT) Measles Ab IgG, Immune Status >300.00 AU/mL [facility] Comment: AU/mL ?Interpretation ----- ? <13.50 ? Not consistent with immunity 13.50-16.49 ?Equivocal >16.49 ? Consistent with immunity The presence of measles IgG suggests immunization or past or current infection with measles virus. For additional information, please refer to http://education.Tagwhat/faq/PFS920 (This link is being provided for informational/ educational purposes only.) Mumps Virus Ab IgG, Immune Status 74.60 AU/mL [facility] Comment: AU/mL ? Interpretation ------- ? <9.00 ? Not consistent with immunity 9.00-10.99 ?Equivocal >10.99 ?Consistent with immunity The presence of mumps IgG antibody suggests immunization or past or current infection with mumps virus. Rubella Virus Ab IgG, Immune Status 1.84 Index [facility] Comment: ?Index ?Interpretation ?----- ?<0.90 ?Not consistent [...] ORDERABLES Final Resul t Performing Organization Address [facility] Phone Number [address] [address] [employer] [address] [place] [phone] * Hepatitis B Surface Antibody Immunity, Quantitative (10/03/2024 3:56 PM EDT) Hepatitis B Surface Antibody Immunity, QN 16 > OR = 10 mIU/mL [employer] Comment: PATIENT HAS IMMUNITY TO HEPATITIS B VIRUS. For additional information, please refer to http://education.Timeshare [employer]ker [employer]/faq/DKK871 (This link is being provided for informational/ educational purposes only). Blood Venous blood specimen / Unknown 10/03/2024 3:56 PM EDT 10/03/2024 3:56 PM EDT Narrative [facility] - 10/04/2024 8:57 AM EDT FASTING:UNKNOWN FASTING: UNKNOWN us Ivy Mantilla NP LAB BLOOD ORDERABLES Final Resul t Performing Organization Address [facility] Phone Number [address] [address] [employer] [address] [place] [phone] * (ABNORMAL) CBC (10/03/2024 3:56 PM EDT) [facility] White Blood Cell Count 6.1 3.8 - 10.8 Thousand/ uL [employer] [facility] Red Blood Cell Count 4.02 3.80 - 5.10 Million/u L [employer] [facility] Hemoglobin 11.3(L) 11.7 - 15.5 g/dL [employer] [facility] Hematocrit 36.0 35.0 - 45.0 % [employer] [facility] MCV 89.6 80.0 - 100.0 fL [employer] [facility] MCH 28.1 27.0 - 33.0 pg [employer] [facility] MCHC 31.4(L) 32.0 - 36.0 g/dL [employer] Comment: For adults, a slight decrease in the calculated MCHC value (in the range of 30 to 32 g/dL) is most likely not clinically significant; however, it should be interpreted with caution in correlation with other red cell parameters and the patient's clinical condition. RDW 13.3 11.0 - 15.0 % [employer] Platelet Count 300 140 - 400 Thousand/ uL [employer] MPV 11.4 7.5 - 12.5 fL [employer] Blood Venous blood specimen / Unknown 10/03/2024 3:56 PM EDT 10/03/2024 3:56 PM EDT Narrative [facility] - 10/04/2024 8:57 AM EDT FASTING:UNKNOWN FASTING: UNKNOWN Ivy Mantilla NP LAB BLOOD ORDERABLES Final Resul t [facility] [address] [place] [address] [employer] [address] [place] [address] * Varicella zoster antibody, IgG (10/03/2024 3:56 PM EDT) [facility] Varicella Zoster Virus Antibody IgG 3.74 S/CO [facility] [employer] [facility] Comment: ?Signal to Cut-off ? S/CO ?Interpretation [...] PM EDT 10/03/2024 3:56 PM EDT Narrative [facility] - 10/04/2024 8:57 AM EDT FASTING:UNKNOWN FASTING: UNKNOWN us Ivy Mantilla EVENT SET UP SPECIALIST LAB BLOOD ORDERABLES Final Resul t [facility] [address], [place] [address] [employer] [address] [place] [address] * Comprehensive Metabolic Panel (10/03/2024 3:56 PM EDT) Glucose 95 65 - 99 mg/dL [facility] Comment: ? Fasting reference interval Urea Nitrogen (BUN) 10 7 - 25 mg/dL [facility] Creatinine, Serum 0.71 0.50 - 0.96 mg/dL [facility] eGFR 120 > OR = 60 mL/min/1. 73m2 [employer] [facility] BUN/Creatinine Ratio SEE NOTE: 6 - 22 (calc) [facility] Comment: ?? Not Reported: BUN and Creatinine are within ?? reference range. ? Sodium 137 135 - 146 mmol/L [employer] Potassium 3.9 3.5 - 5.3 mmol/L [employer] [facility] Chloride 106 98 - 110 mmol/L [employer] [facility] Carbon Dioxide 25 20 - 32 mmol/L [employer] [facility] Calcium 9.4 8.6 - 10.2 mg/dL [employer] [facility] Protein, Total 6.9 6.1 - 8.1 g/dL [employer] Albumin 4.2 3.6 - 5.1 g/dL [employer] Globulin 2.7 1.9 - 3.7 g/dL (calc) [employer] Albumin/Globuli n Ratio 1.6 1.0 - 2.5 (calc) [employer] Bilirubin, Total 0.3 0.2 - 1.2 mg/dL [employer] Alkaline Phosphatase 64 31 - 125 U/L [employer] [facility] AST 14 10 - 30 U/L [employer] ALT 13 6 - 29 U/L [employer] Blood Venous blood specimen / Unknown 10/03/2024 3:56 PM EDT 10/03/2024 3:56 PM EDT Narrative [facility] - 10/04/2024 8:57 AM EDT FASTING:UNKNOWN FASTING: UNKNOWN us Ivy Mantilla NP LAB BLOOD ORDERABLES Final Resul t [facility] [address], [place] [address] [employer] [address] [place] [address] from Last 3 Months Insurance [employer] PPO MEDICARE [facility] STANDARD Care Teams Unit Coordinator Relationship Specialty Start Date End Date Ivy Mantilla NP [address] [place] [address] PCP - General Family Medicine 04/12/24
--- OUTSIDE RECORDS SUMMARY | 2024-11-25 17:36 | XMS_ITS | Encounter Summary ---
Author Organization [employer] Address [address] [place] [address] [place] [address] Care Team Providers Care Stone Planer Name Role Phone Jose Rafael Ivy SUKHI Primary Care Provider [phone] Reason for Visit * Reason Comments Follow-up -Top surgery on 11/27- Discuss recovery Encounter Details Date Type Department Care Team (Latest Contact Info) Description 11/22/2024 9:40 AM EDT Office Visit [facility] [address] [place] [address] Mckay Mueller AGNP [address] [place], [place] [phone] Encounter for postoperative care (Primary Dx) Social History Tobacco Use Types Packs/Day Years [...] the past 12 months, has t he [employer], gas, oil or water [employer] threatened to shut off services in your [...] PM EDT documented as of this encounter Last Filed Vital Signs Vital Sign Reading Time Taken Comments Blood Pressure 110/80 11/22/2024 9:48 AM EDT Pulse 82 11/22/2024 9:48 AM EDT Temperature 36.1 ??C (96.9 ??F) 11/22/2024 9:48 AM ED T Respiratory Rate - - Oxygen Saturation 98% 11/22/2024 9:48 AM EDT Inhaled Oxygen Concentration - - Weight - - Height - - Body Mass Index - - documented in this encounter Progress Notes * RAMOS Arreguin - 11/22/2024 9:40 AM EDT Meek Vallecillo is a 24 y.o. non-binary who presents today for Chief Complaint Patient presents with Follow-up -Top surgery on 11/27 -Discuss recovery Pt presents in office today to discuss top surgery recovery. - Scheduled for top surgery with Dr. Vigil on November 27, T-anchor/double incision with drains and nipple grafts - Plan is for non-flat top surgery, with small amount of tissue left behind (radical reduction) - Concerned about pain management post-surgery, as the surgeon does not routinely prescribe opiatesor narcotics, typically recommending Tylenol - Pt has hx of Genna-Danlos syndrome and POTS, with a baseline chronic pain level around 5 - Tends to develop keloid scars Review of Systems Otherwise noted in HPI. Objective BP 110/80 (BP Location: Right arm, Patient Position: Sitting, BP Cuff Size: Adult) Pulse 82 Temp 96.9 ??F (36.1 ??C) (Temporal) SpO2 98% Physical Exam Vitals reviewed. Constitutional: Appearance: Normal appearance. Comments: Seated comfortably in power chair Pulmonary: Effort: Pulmonary effort is normal. Musculoskeletal: General: Normal range of motion. Skin: General: Skin is warm and dry. Neurological: Mental Status: Meek is alert and oriented to person, place, and time. Mental status is at baseline. Psychiatric: Mood and Affect: Mood normal. Behavior: Behavior normal. Assessment/Plan Problem List Items Addressed This Visit None Visit Diagnoses Encounter for postoperative care - Primary Post-surgery pain management: - Concern about managing pain post-surgery, especially with a history of Genna- Danlos syndrome andprevious ineffective pain management - Provided reassurance regarding using Tylenol for pain management post-surgery - Discussion about the potential need for stronger pain medication if Tylenol is insufficient Allergic reaction to local anesthetics: - Previous delayed allergic reaction after port placement, suspected to be due to a preservative orinactive ingredient in lidocaine and epinephrine - Decision to avoid using the local anesthetics that might cause the same reaction during surgery, which has been discussed with surgeon Post-operative nausea management: - Concern about post-operative nausea and the potential use of opioid-induced medications - Recommended request for using IV Tylenol in post-op and a scopolamine patch pre-op to manage opioid induced nausea - Plan to start taking stool softeners preemptively to prevent post-op constipation Post-operative care and recovery: - Concerns about post-operative care, including incision and drain care, and the timing of the first post-op appointment (12 days post op) - Plan to call and inquire about the timing of the first post-op appointment and drain removal. - Recommended using Aquaphor for scar care to prevent hypertrophic scarring - Discussed using Benadryl as a sleep aid and to prevent itching from Iodine based surgical scrubs - Encouraged pt to reach out if they have any further questions prior to surgery Follow up if symptoms worsen or fail to improve. No future appointments. documented in this encounter Plan of Treatment Not on file documented as of this encounter Visit Diagnoses Diagnosis Encounter for postoperative care- Primary documented in this encounter Additional Health Concerns Assessment Noted Time PHQ-9 Depression Total Score: 19 024 2:34 PM EDT documented as of this encounter Care Teams Stone Planer Relationship Specialty Start Date End Date Ivy Mantilla NP [address] [place] [address] PCP - General Family Medicine 04/12/24 documented as of this encounter
--- OUTSIDE RECORDS SUMMARY | 2024-11-25 17:36 | XMS_ITS ---
Author Organization [facility] Address [address] [place] [address] Care Team Providers Care Conditioner Tumbler Operator Name Role Phone Zaynab Tucker Primary Care Provider Alida Galan Unavailable [phone] Allergies Allergen (clinical drug ingredient) Drug/Non Drug Allergy documented on EMR Reaction Allergy Type Onset Date Status medroxyprogesterone Depo-Provera Unknown Drug Allergy Active cefazolin Cefazolin Unknown Drug Allergy Active gentamicin Gentamicin Unknown Drug Allergy Activ e REASON FOR VISIT 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 AWAY 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, eds, pots Medications Medication SIG (Take, Route, [...] W/U Status Risk Notes Problem Chest pain (19946133) Chest pain (R07.9) Active confirmed Problem Chronic fatigue syndrome (78939792) Chronic fatigue (R53.82) Active confirmed Problem Nitza's disease (72727419) 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6) Active confirmed Problem Postural orthostatic tachycardia syndrome (disorder) (205297062) POTS (postural orthostatic tachycardia syndrome) (I49.8) Active confirmed Problem Borderline personality disorder (06837022) Borderline personality disorder (F60.3) Active confirmed Encounters Encounter Location Date Provider Diagnosis [address] [address] 05/30/2024 Alida Jain Plan Of Treatment Next Appt Details Provider Name:Alida diana, 06/17/2025 01:00:00 PM, [address] [place] [address], [place], [address], Progress Notes * María Elena VALLECILLOOB:2000 (24 yo F)Acc No.[id number]:05/30/2024 Progress Notes Patient:?ROSAURA Chanelle Provider:?Alida Jain D.O. :2000???Age:23 Y???Sex:Female D ate:05/30/2024 Address:[address] [place] [address], [place] Pcp:Zaynab Hester Subjective: * Chief Complaints: * ???1. 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 * Medical History:?Chest pain, Chronic [...] Electronic signature of Jose Jain DO on 11/25/2024 at 05:36 PM EDT Sign off status: Pending * Provider:?Alida Jain D.O. Date:? Generated for Cheyenne vargas/Kenan/Dariana on:?11/25/2024 05:36 PM EDT
--- OUTSIDE RECORDS SUMMARY | 2024-11-25 17:36 | XMS_ITS | Encounter Summary ---
Author Organization [employer] Address [address] [place] [address] 7 [place] [address] Care Team Providers Care Vocational Rehabilitation Supervisor Name Role Phone Ivy Mantilla NP Primary Care Provider [phone] Encounter Details Date Type Department Care Team ([facility] Contact Info) Description 10/08/2024 Telephone [facility] 102 [place] [address] Ivy Mantilla NP 102 [place], [place] [phone] Social History Tobacco Use Types Packs/Day Years [...] questions you can call her back at [phone] option 2 for intake * Telephone Encounter - Salena Malin - 10/08/2024 2:59 PM EDT Option 2. They cannot accept the referral because [facility] will not be sending the a pump. They cannot accept unless there is a pump available. I any other questions please call [phone] documented in this encounter Plan of Treatment Not on file documented as of this encounter Visit Diagnoses Not on filedocumented in this encounter Additional Health Concerns Assessment Noted Time PHQ-9 Depression Total Score: 19 024 2:34 PM EDT documented as of this encounter Care Teams Vocational Rehabilitation Supervisor Relationship Specialty Start Date End Date Ivy Mantilla NP [address] [place] [address] PCP - General Family Medicine 04/12/24 documented as of this encounter
--- OUTSIDE RECORDS SUMMARY | 2024-11-25 17:36 | XMS_ITS | Encounter Summary ---
Author Organization [employer] Address [address] 7t [place] [address] Care Team Providers Care Note Taker Name Role Phone Ivy Mantilla MEDICAL CONCIERGE Primary Care Provider [phone] Encounter Details Date Type Department Care Team ([facility] [place] st Contact Info) Description 09/18/2024 Telephone [facility] [address] [address] Ivy Mantilla NP [address] [place] [address] Social History Tobacco Use Types Packs/Day Years [...] the past 12 months, has t he [employer], gas, oil or water company threatened to [...] was planning to do or send to GUEST RELATIONS RECEPTIONIST for. Pt has been educated on exercises. [...] order sent over. Please advise Call back# [phone] Or after 3pm [phone] documented in this encounter Plan of Treatment Not on file documented as of this encounter Visit Diagnoses Not on filedocumented in this encounter Additional Health Concerns Assessment Noted Time PHQ-9 Depression Total Score: 19 024 2:34 PM EDT documented as of this encounter Care Teams Note Taker Relationship Specialty Start Date End Date Ivy Mantilla NP [address] [place] [address] PCP - General Family Medicine 04/12/24 documented as of this encounter
--- OUTSIDE RECORDS SUMMARY | 2024-11-25 17:36 | XMS_ITS | Encounter Summary ---
Author Organization [employer] Address [address] [place] [address] 7 [place] [address] Care Team Providers Care Supervisor Reinforced Steel Placing Name Role Phone Ivy Mantilla NP Primary Care Provider Encounter Details Date Type Department Care Team ([facility] st Contact Info) Description 09/26/2024 Telephone [facility] 102 [place] [address] Ivy Mantilla NP 102 [place], [place] [phone] Social History Tobacco Use Types Packs/Day Years [...] do IV fluids. Call back if needed [phone] documented in this encounter Plan of Treatment Not on file documented as of this encounter Visit Diagnoses Not on filedocumented in this encounter Additional Health Concerns Assessment Noted Time PHQ-9 Depression Total Score: 19 024 2:34 PM EDT documented as of this encounter Care Teams Supervisor Reinforced Steel Placing Relationship Specialty Start Date End Date Ivy Mantilla NP [address] [place] [address] PCP - General Family Medicine 04/12/24 documented as of this encounter
--- OUTSIDE RECORDS SUMMARY | 2024-11-25 17:36 | XMS_ITS | Encounter Summary ---
Author Organization [employer] Address [address] [place] [address] 7 [place] [address] Care Team Providers Care Inspector Precision Assembly Name Role Phone Ivy Mantilla NP Primary Care Provider [phone] Encounter Details Date Type Department Care Team ([facility] Contact Info) Description 11/14/2024 Telephone [facility] 102 [place] [address] vIy Mantilla NP 102 [place], [place] [phone] Social History Tobacco Use Types Packs/Day Years [...] as of this encounter Plan of Treatment Not on file documented as of this encounter Visit Diagnoses Not on filedocumented in this encounter Additional Health Concerns Assessment Noted Time PHQ-9 Depression Total Score: 19 024 2:34 PM EDT documented as of this encounter Care Teams Inspector Precision Assembly Relationship Specialty Start Date End Date Ivy Mantilla NP [address] [place] [address] PCP - General Family Medicine 04/12/24 documented as of this encounter
--- OUTSIDE RECORDS SUMMARY | 2024-11-25 17:36 | XMS_ITS | Encounter Summary ---
Author Organization [employer] Address [address] [place] [address] 7 [place] [address] Care Team Providers Care Director Television Name Role Phone Ivy Mantilla NP Primary Care Provider [phone] Reason for Visit * Reason Onset Date Comments Cervical Cancer Screening 11/20/2024 Encounter Details Date Type Department Care Team ([facility] st Contact Info) Description 11/20/[address] [address] Ivy Mantilla NP 102 [place], [place] [phone] Cervical Cancer Screening Social History Tobacco Use Types Packs/Day Years [...] the past 12 months, has t he [email or web address], gas, oil or water [employer] threatened to shut off services in your [...] documented as of this encounter Care Teams Director Television Relationship Specialty Start Date End Date Ivy Mantilla NP [address] [place] [address] PCP - General Family Medicine 04/12/24 documented as of this encounter
--- OUTSIDE RECORDS SUMMARY | 2024-11-25 17:36 | XMS_ITS ---
Author Organization [facility] Address [address] [facility] [address] [place] [address] Care Team Providers Care Restaurant Managing Partner Name Role Phone Zaynab Tucker Primary Care Provider Diane Alida Bee Unavailable [phone] REASON FOR VISIT Midodrine start Medications Medication SIG (Take, Route, Fr equency, Duration) Notes Start Date End Date Status Midodrine HCl 2.5 MG 1 tablet Orally Twi ce a day for 90 days 11/21/2024 Active Encounters Encounter Location Date Provider Diagnosis [facility] [employer] [address] [address] 11/21/2024 Alida Jain Plan Of Treatment Medication Medication Name Sig Start Date Stop Date Notes Midodrine HCl 2.5 MG 1 tablet Orally Twi ce a day for 90 days 11/21/2024 Next Appt Details Provider Name:Alida Velasquez y, 06/17/2025 01:00:00 PM, [address] [place] [address], [address], Progress Notes * ROSAURA María ElenaOB:2000 (24 yo F)Acc No.[id number]:11/21/2024 Patient:?Chanelle VALLECILLO :2000???Age:24 Y???Sex:Female Address:[address] [place] [address], [address] * Refills? Start Midodrine HCl Tablet, 2.5 MG, Orally, 180, 1 tablet, Twice a day, 90 days, Refills=5 * true * Date:? Generated for Cheyenne vargas/Kenan/Luisitting on:?11/25/2024 05:36 PM EDT
--- OUTSIDE RECORDS SUMMARY | 2024-11-25 17:36 | XMS_ITS | Encounter Summary ---
Author Organization [employer] Address [address] [place] [address] 7 [place] [address] Care Team Providers Care Tie Tamper Name Role Phone Ivy Mantilla NP Primary Care Provider [phone] Encounter Details Date Type Department Care Team ([facility] Contact Info) Description 10/04/2024 Telephone [facility] 102 [place] [address] Ivy Mantilla NP 102 [place], [place] [phone] Social History Tobacco Use Types Packs/Day Years [...] the past 12 months, has t he [employer], gas, oil or water company threatened to [...] documented as of this encounter Care Teams Tie Tamper Relationship Specialty Start Date End Date Ivy Mantilla NP [address] [place] [address] PCP - General Family Medicine 04/12/24 documented as of this encounter
--- OUTSIDE RECORDS SUMMARY | 2024-11-25 17:36 | XMS_ITS | Encounter Summary ---
Author Organization [employer] Address [address] [place] [address] 7 [place] [address] Care Team Providers Care Administrative Office Assistant Name Role Phone Ivy Mantilla NP Primary Care Provider [phone] Encounter Details Date Type Department Care Team ([facility] st Contact Info) Description 11/15/2024 Orders Only [facility] 102 [place] [phone] Ivy Mantilla NP 102 [place], [place] [phone] POTS (postural orthostatic tachycardia syndrome) Social History [...] the past 12 months, has t he [employer], gas, oil or water company threatened to [...] documented as of this encounter Care Teams Administrative Office Assistant Relationship Specialty Start Date End Date Ivy Mantilla NP [address] [place] [address] PCP - General Family Medicine 04/12/24 documented as of this encounter
--- OUTSIDE RECORDS SUMMARY | 2024-11-25 17:36 | XMS_ITS | Encounter Summary ---
Author Organization [employer] Address [address] [facility] 7t [place] [address] Care Team Providers Care Pig Conveyor Operator Name Role Phone Ivy Mantilla DIETARY SERVICES MANAGER Primary Care Provider [phone] Encounter Details Date Type Department Care Team ([facility] st Contact Info) Description 10/16/2024 Telephone [facility] [address] [address] vIy Mantilla NP [address] [place] [address] Social History Tobacco Use Types Packs/Day Years [...] the past 12 months, has t he [employer], gas, oil or water company threatened to [...] documented as of this encounter Care Teams Pig Conveyor Operator Relationship Specialty Start Date End Date Ivy Mantilla NP [address] [place] [address] PCP - General Family Medicine 04/12/24 documented as of this encounter
--- OUTSIDE RECORDS SUMMARY | 2024-11-25 17:36 | XMS_ITS | Encounter Summary ---
Author Organization [employer] Address [address] [place] [address] 7 [place] [address] Care Team Providers Care Commissioner Of Relocation Services Name Role Phone Ivy Mantilla NP Primary Care Provider [phone] Encounter Details Date Type Department Care Team ([facility] st Contact Info) Description 11/22/2024 Orders Only [facility] 102 [place] [phone] Ivy Mantilla NP 102 [place], [place] [phone] POTS (postural orthostatic tachycardia syndrome) Social History [...] the past 12 months, has t he [employer], gas, oil or water company threatened to [...] documented as of this encounter Care Teams Commissioner Of Relocation Services Relationship Specialty Start Date End Date Ivy Mantilla NP [address] [place] [address] PCP - General Family Medicine 04/12/24 documented as of this encounter
--- OUTSIDE RECORDS SUMMARY | 2024-11-25 17:36 | XMS_ITS | Encounter Summary ---
Author Organization [employer] Address [address] [place] [address] 7 [place] [address] Care Team Providers Care Front End Technician Name Role Phone Ivy Mantilla NP Primary Care Provider [phone] Encounter Details Date Type Department Care Team ([facility] st Contact Info) Description 10/28/2024 Telephone [facility] 102 [place] [address] Ivy Mantilla NP 102 [place], [place] [phone] Social History Tobacco Use Types Packs/Day Years [...] patients cancer screening and hpv vaxs to [phone] documented in this encounter Plan of Treatment Not on file documented as of this encounter Visit Diagnoses Not on filedocumented in this encounter Additional Health Concerns Assessment Noted Time PHQ-9 Depression Total Score: 19 024 2:34 PM EDT documented as of this encounter Care Teams Front End Technician Relationship Specialty Start Date End Date Ivy Mantilla NP [address] [place], [place] [phone] PCP - General Family Medicine 04/12/24 documented as of this encounter
--- OUTSIDE RECORDS SUMMARY | 2024-11-25 17:36 | XMS_ITS | Encounter Summary ---
Author Organization [employer] Address [address] [place] [address] 7 [place] [address] Care Team Providers Care Freight Shipping Agent Name Role Phone Ivy Mantilla NP Primary Care Provider [phone] Encounter Details Date Type Department Care Team ([facility] Contact Info) Description 04/30/2024 Telephone [facility] 102 [place] [address] Ivy Mantilla NP 102 [place], [place] [phone] Social History Tobacco Use Types Packs/Day Years [...] documented as of this encounter Care Teams Freight Shipping Agent Relationship Specialty Start Date End Date Ivy Mantilla NP [address] [place] [address] PCP - General Family Medicine 04/12/24 documented as of this encounter
--- OUTSIDE RECORDS SUMMARY | 2024-11-25 17:36 | XMS_ITS | Encounter Summary ---
Author Organization [employer] Address [address] [place] [address] 7 [place] [address] Care Team Providers Care Test Bore Helper Name Role Phone Ivy Mantilla NP Primary Care Provider [phone] Encounter Details Date Type Department Care Team ([facility] Contact Info) Description 04/24/2024 Telephone [facility] 102 [place] [address] Ivy Mantilla NP 102 [place], [place] [phone] Social History Tobacco Use Types Packs/Day Years [...] the past 12 months, has t he [email or web address], gas, oil or water company threatened to [...] Pt is working on it. Eloy from [facility] notified. * Telephone Encounter - Thalia Gold - 04/25/2024 1:39 PM EDT Patient missed a call from nursing please call [phone] * Telephone Encounter - Britt Keys LPN - 04/24/2024 3:27 PM EDT Spoke to eloy from [facility] stated there nursing can place peripheral [...] Referrals or nursing- Can you please call [facility]? I will be looking to order [...] that will be helpful. Thanks Ivy Mantilla SNAGGER Copied from duplicate task * Telephone Encounter - Solange Cruz - 04/24/2024 2:08 PM EDT Eloy left a voicemail following up on insurance referral says it appears to be for [employer] .states in order for them to chk the ins. Coverage they need to know the name of the [employer] andthey need to know the the method of administration . Call back#[phone] documented in this encounter Plan of Treatment Not on file documented as of this encounter Visit Diagnoses Not on filedocumented in this encounter Additional Health Concerns Assessment Noted Time PHQ-9 Depression Total Score: 19 09/20/2 024 2:34 PM EDT documented as of this encounter Care Teams Test Bore Helper Relationship Specialty Start Date End Date Ivy Manitlla NP [address] [place] [address] PCP - General Family Medicine 04/12/24 documented as of this encounter
--- OUTSIDE RECORDS SUMMARY | 2024-11-25 17:36 | XMS_ITS ---
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, 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, 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 Medications Medication SIG (Take, Route, Frequency, Duration) Notes Start Date End Date Status buPROPion HCl ER (XL) 300 MG 1 tablet in the morning Orally Once a day Active Cetirizine HCl 10 MG 1 tablet Orally twi ce a day Active Cholecalciferol 50 MCG (1999) 1 capsule Orally Once a day Active clonazePAM 0.5 MG 1 tablet Orally Once a day prn As needed Active Dextroamphetamine Sulfate 10 MG 1 tablet in the morning Orally Once a day Active Famotidine 40 MG 1 tablet at bedtime as needed Orally twice a day Active Lansoprazole 30 MG 1 capsule before a meal Orally twice a day Active Fludrocortisone Acetate 0.1 MG 1 tablet Orally Once a day Active Fluoxetine 20 MG 1 capsule Orally Onc e a day Active Magnesium Complex High Poten cy 250 MG 2 capsule Orally Once a day Active Valtrex 500 MG 1 tablet Orally prn Active Prucalopride Succinate 2 MG 1 tablet Ora lly Once a day Active traZODone HCl 150 MG 0.5 to full tablet Orally Once a day Active Levothyroxine Sodium 75 MCG 1 tablet in the morning on an empty stomach Orally Once a day except Monday Active Cromolyn Sodium 100 MG/5ML 2 ampules Ora lly three times per day Active Cyproheptadine HCl 4 MG 1 tablet Orally Twice a day Active Metoclopramide HCl 5 MG 1 to 2 tablet on the tongue and allow to dissolve before meals Orally 3 times per week prn Active Ubrelvy 100 MG 0.5 - 1 tablet as needed, may take second dose at least 2 hours after first dose up to 2 tablets per day as needed Orally prn Active Mestinon 60 MG 1 tablet Orally twic e per day Active Social History Tobacco Use: Social History Observation Description Date Details (start date - stop date) Former Smoker NA - NA Tobacco use other than smoking: Question Answer Notes Are you an other tobacco user? 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 Problem Polycystic ovary syndrome (disorder) (036609686) PCOS (polycystic ovarian syndrome) (E28.2) Active confirmed Problem Migraine with aura (6849383) Migraine with aura (G43.109) Active confirmed Problem Attention deficit hyperactivity disorder (142602972) ADHD (attention deficit hyperactivity disorder) (F90.9) Active confirmed Problem Autism (89423923) Autism (F84.0) Active confirm ed Problem Depression (576729475) Depression (F32.9) Active confirmed Problem Anxiety (35967213) Anxiety (F41.9) Active confirmed Problem Restless legs (53963525) RLS (restless legs syndrome) (G25.81) Active confirmed Vital Signs Temperature 98.0 degrees Fahrenheit 11/22/19 25 Blood pressure systolic 122 mm Hg 11/22/19 25 Blood pressure diastolic 82 mm Hg 025 Heart Rate 82 /min 11/21/2024 Height 62 in 11/21/2024 Weight 160 lbs 11/21/2024 BMI 29.26 kg/m2 11/21/2024 ORTHOS:SITTING 118/78 hr 70s TANDING 110/78 hr 84.....VERY WINDED STANDING Encounters Encounter Location Date Provider Diagnosis [address] [address] 11/21/2024 Alida Jain 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 Gastroparesis GERD I will see her back in 6 months: She prefers telehealth visits Abdominal binder Zio patch 2 weeks after her gender affirming surgery this week Midodrine 2.5 mg twice daily, will consider uptitrating depending on her response Continue to monitor potassium on weekly labs from [facility] fluid center while she is on [facility] Echocardiogram every 3 years, due in 2025 for EDS and screening for aortic root dilation 11/21/2024 POTS (postural orthostatic tachycardia syndrome) (ICD-10 - I49.8) Has had a diagnosis of POTS for of 5 to 6 yearsEDS hypermobility variant has been associated with POTSCurrently symptomatic on a daily basis with dizziness lightheadedness palpitations To evaluate palpitations she has had a Holter monitor in 2021 revealed sinus rhythm with no signs of ventricular arrhythmias AT atrial fibrillation She is currently on pyridostigmine and fludrocortisone and thrice weekly IV fluid administration through a port. She has noted significant improvement with pyridostigmine and fludrocortisone however continues to have of symptoms with sudden changes in posture and is wheelchair dependent.When beta-blockers were trialed in the past she had significant adverse effects including dizziness.Conservative measuresIncluding compression stockings and electrolyte/she is improved hydration have helped. She has never tried an abdominal binder before and was advised that this might provide added benefit by reducing venous pooling in the splanchnic circulation.She has never been trialed on midodrine, this can be considered in her case as it would increase alpha-1 activation primarily in the splanchnic circulation and peripheral vessels causing vasoconstriction raising systemic vascular resistance and improving blood return to the heart. She has never been trialed on ivabradine droxidopa and cannot tolerate higher doses of pyridostigmine PlanMidodrine 2.5 mg twice daily gradual uptitration while monitoring for hypertension at home considering she is also on FlorinefMonitor BMP, he has labs done at the infusion center when she receives IV fluids. 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 Gastroparesis GERD I will see her back in 6 months: She prefers telehealth visits Abdominal binder Zio patch 2 weeks after her gender affirming surgery this week Midodrine 2.5 mg twice daily, will consider uptitrating depending on her response Continue to monitor potassium on weekly labs from IV fluid center while she is on [facility] Echocardiogram every 3 years, due in 2025 for EDS and screening for aortic root dilation Plan Of Treatment Treatment Notes Assessment Notes Nitza's disease On levothyroxineTSH stable at 0.98Does not have clinical signs of symptoms of hypothyroidism or hyperthyroidism. POTS (postural orthostatic tachycardia syndrome) Has had a diagnosis of POTS for of 5 to 6 yearsEDS hypermobility variant has been associated with POTSCurrently symptomatic on a daily basis with dizziness lightheadedness palpitations To evaluate palpitations she has had a Holter monitor in 2021 revealed sinus rhythm with no signs of ventricular arrhythmias AT atrial fibrillation She is currently on pyridostigmine and fludrocortisone and thrice weekly IV fluid administration through a port. She has noted significant improvement with pyridostigmine and fludrocortisone however continues to have of symptoms with sudden changes in posture and is wheelchair dependent.When beta-blockers were trialed in the past she had significant adverse effects including dizziness.Conservative measuresIncluding compression stockings and electrolyte/she is improved hydration have helped. She has never tried an abdominal binder before and was advised that this might provide added benefit by reducing venous pooling in the splanchnic circulation.She has never been trialed on midodrine, this can be considered in her case as it would increase alpha-1 activation primarily in the splanchnic circulation and peripheral vessels causing vasoconstriction raising systemic vascular resistance and improving blood return to the heart. She has never been trialed on ivabradine droxidopa and cannot tolerate higher doses of pyridostigmine PlanMidodrine 2.5 mg twice daily gradual uptitration while monitoring for hypertension at home considering she is also on FlorinefMonitor BMP, he has labs done at the infusion center when she receives IV fluids. Monitoring her potassium as she is on FlorinefEncourage physical activity reduce deconditioning promoting the use of a recumbent bikeZio patch for 2 weeks following her gender affirming surgery to evaluate palpitations Genna-Danlos syndrome Hypermobility anne marie Blankenship at the [facility] CenterOrthostatic hypotension and postural orthostatic tachycardia syndrome may be a consequence of EDSEchocardiograms in the past most recently in 2022 did not show evidence of mitral valve prolapse or aortic root dilationPlanEchocardiogram every 3 years next due in 2025 to monitor for aortic root dilation Next Appt Details Provider Name:Alida Hernandezjareth diana, 06/17/2025 01:00:00 PM, [address], [address], [place], [address], Progress Notes * María Elena VALLECILLOOB:2000 (24 yo F)Acc No.[id number]:11/21/2024 Progress Notes Patient:?Chanelle VALLECILLO Provider:?Alida Jain D.O. :2000???Age:24 Y???Sex:Female D ate:11/21/2024 Address:[address] [place] [address], [id number] Pcp:Zaynab Hester Subjective: * Chief Complaints: * ???1. 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 * HPI: ???CS:? Prefers to be addressed Meek (pronounced Matias)? He has been referred to us by Ivy Mantilla her PCP she previously followed with Dr. Mederos at [facility] general cardiology. She lives in [place] is disabled and requires PCS support 70 hours a week. 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 She also has been diagnosed with postural orthostatic syndrome and is currently on pyridostigmine fludrocortisone and IV fluids thrice weekly 1 L/day. She used to use a recumbent bike up until a year ago and has not used it since due to symptoms of fatigue nausea dizziness while using it. She follows up with PT weekly for chronic pain. She has symptoms of dizziness lightheadedness palpitations on a daily basis with pressure-like chest pain that is not associated with exertion and last for a few minutes. Her palpitations are regular usually associated after getting up from sitting to standing position which she tends to avoid and uses a wheelchair for most part of her day. Palpitations are associated with dizziness and lightheadedness. In the past she has been trialed on metoprolol which she did not tolerate due to lightheadedness, she has never been trialed on midodrine. She does use compression stockings however has never tried an abdominal binder. She has never been trialed on droxidopa or ivabradine. Prior cardiovascular investigations June 2023: Echocardiogram 70% mild MR normal diastolic function, trileaflet aortic valve, mild MR mild thickening of the anterior mitral leaflet no signs of mitral valve prolapse no signs of aortic root dilation Holter monitor for 48 hours in March 2023: Sinus rhythm no PVCs PACs A-fib or AT Lab investigations October 03, 2024: H&H: 11.3/36 Creatinine 0.71 Potassium 3.9 Lab investigations November 11, 2024 Potassium 3.9 creatinine 0.65 bicarbonate 21 TSH 0.98 [id number] glucose 68. * Medical History:?Chest pain, Chronic fatigue, Nitza's disease, PTSD (post-traumatic stress disorder), Vitamin D insufficiency, Dissociative identity disorder, Gastroesophageal reflux disease without esophagitis, Genna-Danlos syndrome, Dysmenorrhea, POTS (postural orthostatic tachycardia syndrome), Borderline personality disorder, Mast cell activation syndrome, PCOS (polycystic ovarian syndrome), Migraine with aura, ADHD (attention deficit hyperactivity disorder), Autism, Depression, Anxiety, RLS (restless legs syndrome). * Surgical History:?talia barillas er 2013, lithotripsy , port placement . * Hospitalization/Major Diagno stic Procedure:?sx related . * Family History:?Mother: unkn own, LupusFibrocystic breast disease.?Paternal Grand Mother: unknown, Breast cancer.?Paternal aunt: unknown, Breast cancer.? * Social History:?Tobacco Use:?Tobacco use other than smoking?Are you an other tobacco user??No.?Tobacco Control (Standard)?Tobacco use:?Former smoker.?Drugs/Alcohol:?Do you smoke marijuana?: Admits. Do you drink alcohol?: Yes, occasionally. * Medications:?Taking Mestinon 60 MG Tablet 1 tablet Orally twice per day , Taking Cyproheptadine HCl 4 MG Tablet 1 tablet Orally Twice a day , Taking Cromolyn Sodium 100 MG/5ML Concentrate 2 ampules Orally three times per day , Taking Ubrelvy 100 MG Tablet 0.5 - 1 tablet as needed, may take second dose at least 2 hours after first dose up to 2 tablets per day as needed Orally prn , Taking Metoclopramide HCl 5 MG Tablet Disintegrating 1 to 2 tablet on the tongue and allow to dissolve before meals Orally 3 times per week prn , Taking Valtrex 500 MG Tablet 1 tablet Orally prn , Taking Magnesium Complex High Potency 250 MG Capsule 2 capsule Orally Once a day , Taking traZODone HCl 150 MG Tablet 0.5 to full tablet Orally Once a day , Taking Prucalopride Succinate 2 MG Tablet 1 tablet Orally Once a day , Taking Levothyroxine Sodium 75 MCG Tablet 1 tablet in the morning on an empty stomach Orally Once a day except Monday , Taking Lansoprazole 30 MG Capsule Delayed Release 1 capsule before a meal Orally twice a day , Taking Fluoxetine 20 MG Capsule 1 capsule Orally Once a day , Taking Fludrocortisone Acetate 0.1 MG Tablet 1 tablet Orally Once a day , Taking Famotidine 40 MG Tablet 1 tablet at bedtime as needed Orally twice a day , Taking Dextroamphetamine Sulfate 10 MG Tablet 1 tablet in the morning Orally Once a day , Taking clonazePAM 0.5 MG Tablet 1 tablet Orally Once a day prn As needed, Taking Cholecalciferol 50 MCG (1999) Capsule 1 capsule Orally Once a day , Taking Cetirizine HCl 10 MG Tablet 1 tablet Orally twice a day , Taking buPROPion HCl ER (XL) 300 MG Tablet Extended Release 24 Hour 1 tablet in the morning Orally Once a day , Discontinued Sodium Chloride 1 GM Tablet as directed Orally , Medication List reviewed and reconciled with the patient * Allergies:?Cefazolin, Gentam icin, Depo-Provera. Objective: * Vitals:?Temp:98.0F, HR:82/mi n, BP:122/82mm Hg, Wt:160lbs, BMI:29.26Index, Ht: 62 in, Pain scale:51-10, Ht-cm: 157.48 cm, Wt-k.58 kg. ORTHOS: SITTING? ? 118/78 hr 70 sTANDING? ? 110/78 hr 84.....VERY WINDED STANDING. * Examination: ???Neurologic: ???Physical exam: General: Alert, Oriented X3, no acute distress, Psychiatric: Normal affect Neurological: Cranial nerves 2-12, 5/5 motor Strength, Deep tendon reflexes 2+, Sensation intact, Normal tone, Normal gait, Normal speech, Vision Skin: Normal turgor HEENT: PERRL, Sclera anicteric, Conjunctivae pink, Mucous membranes moist, Normal oropharynx, Nose normal Neck: Supple, JVP normal, No thyromegaly, No carotid bruit Lungs: CTAB, Chest wall nontender, no wheezing or crackles Cardiovascular: Regular rhythm, Normal s1, S2, No Murmurs, Rubs or gallops Abdomen: Nondistended, Normal bowel sounds, Soft, Nontender, No hepatosplenomegaly, No masses, No bruit Extremities: Normal pulses, no cyanosis, no clubbing, No edema. 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 Notes: Has had a diagnosis of POTS for of 5 to 6 yearsEDS hypermobility variant has been associated with POTSCurrently symptomatic on a daily basis with dizziness lightheadedness palpitations To evaluate palpitations she has had a Holter monitor in 2021 revealed sinus rhythm with no signs of ventricular arrhythmias AT atrial fibrillation She is currently on pyridostigmine and fludrocortisone and thrice weekly IV fluid administration through a port. She has noted significant improvement with pyridostigmine and fludrocortisone however continues to have of symptoms with sudden changes in posture and is wheelchair dependent.When beta-blockers were trialed in the past she had significant adverse effects including dizziness.Conservative measuresIncluding compression stockings and electrolyte/she is improved hydration have helped. She has never tried an abdominal binder before and was advised that this might provide added benefit by reducing venous pooling in the splanchnic circulation.She has never been trialed on midodrine, this can be considered in her case as it would increase alpha-1 activation primarily in the splanchnic circulation and peripheral vessels causing vasoconstriction raising systemic vascular resistance and improving blood return to the heart. She has never been trialed on ivabradine droxidopa and cannot tolerate higher doses of pyridostigmine PlanMidodrine 2.5 mg twice daily gradual uptitration while monitoring for hypertension at home considering she is also on FlorinefMonitor BMP, he has labs done at the infusion center when she receives IV fluids. Monitoring her potassium as she is on FlorinefEncourage physical activity reduce deconditioning promoting the use of a recumbent bikeZio patch for 2 weeks following her gender affirming surgery to evaluate palpitations?? 3.?Genna-Danlos syndrome? Notes: Hypermobility variantWith Dr. Blankenship at the [facility] genetics CenterOrthostatic hypotension and postural orthostatic tachycardia syndrome may be a consequence of EDSEchocardiograms in the past most recently in 2022 did not show evidence of mitral valve prolapse or aortic root dilationPlanEchocardiogram every 3 years next due in 2025 to monitor for aortic root dilation?? * * Electronic signature of Jose Jain DO on 11/25/2024 at 05:35 PM EDT Sign off status: Pending * Provider:?Alida Jain D.O. Date:? Generated for Cheyenne vargas/Kenan/Luisitting on:?11/25/2024 05:35 PM EDT History and Physical Notes * HPI (History of Present Illness) Category Sub-Category Detail Notes Category Not es CS Prefers to be addressed Meek (pronounced Matias) He has been referred to us by Ivy Mantilla her PCP she previously followed with Dr. Mederos at [facility] general cardiology. She lives in [place] is disabled and requires PCS support 70 hours a week. 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 She also has been diagnosed with postural orthostatic syndrome and is currently on pyridostigmine fludrocortisone and IV fluids thrice weekly 1 L/day. She used to use a recumbent bike up until a year ago and has not used it since due to symptoms of fatigue nausea dizziness while using it. She follows up with PT weekly for chronic pain. She has symptoms of dizziness lightheadedness palpitations on a daily basis with pressure-like chest pain that is not associated with exertion and last for a few minutes. Her palpitations are regular usually associated after getting up from sitting to standing position which she tends to avoid and uses a wheelchair for most part of her day. Palpitations are associated with dizziness and lightheadedness. In the past she has been trialed on metoprolol which she did not tolerate due to lightheadedness, she has never been trialed on midodrine. She does use compression stockings however has never tried an abdominal binder. She has never been trialed on droxidopa or ivabradine. Prior cardiovascular investigations June 2023: Echocardiogram 70% mild MR normal diastolic function, trileaflet aortic valve, mild MR mild thickening of the anterior mitral leaflet no signs of mitral valve prolapse no signs of aortic root dilation Holter monitor for 48 hours in March 2023: Sinus rhythm no PVCs PACs A-fib or AT Lab investigations October 03, 2024: H&H: 11.3/36 Creatinine 0.71 Potassium 3.9 Lab investigations November 11, 2024 Potassium 3.9 creatinine 0.65 bicarbonate 21 TSH 0.98 [id number] glucose 68 Examination Category Sub-Category Detail Notes Category Not es Neurologic Physical exam: General: Alert, Oriented X3, no acute distress, Psychiatric: Normal affect Neurological: Cranial nerves 2-12, 5/5 motor Strength, Deep tendon reflexes 2+, Sensation intact, Normal tone, Normal gait, Normal speech, Vision Skin: Normal turgor HEENT: PERRL, Sclera anicteric, Conjunctivae pink, Mucous membranes moist, Normal oropharynx, Nose normal Neck: Supple, JVP normal, No thyromegaly, No carotid bruit Lungs: CTAB, Chest wall nontender, no wheezing or crackles Cardiovascular: Regular rhythm, Normal s1, S2, No Murmurs, Rubs or gallops Abdomen: Nondistended, Normal bowel sounds, Soft, Nontender, No hepatosplenomegaly, No masses, No bruit Extremities: Normal pulses, no cyanosis, no clubbing, No edema
--- OUTSIDE RECORDS SUMMARY | 2024-11-25 17:36 | XMS_ITS | Patient Health Record ---
Author Organization [facility] [employer], [facility] Address [address] [facility] [address] [place] [address] Care Team Providers Care [facility] Name Role Phone Zaynab Tucker Primary Care Provider Alida Galan Unavailable [phone] Allergies Allergen (clinical drug ingredient) Drug/Non Drug Allergy documented on EMR Reaction Allergy Type Onset Date Status medroxyprogesterone Depo-Provera Unknown Drug Allergy Active cefazolin Cefazolin Unknown Drug Allergy Active gentamicin Gentamicin Unknown Drug Allergy Activ e Reason For Referral No Information Medications Medication SIG (Take, Route, Frequency, Duration) Notes Start Date End Date Status Cetirizine HCl 10 MG 1 tablet Orally twi ce a day Active Dextroamphetamine Sulfate 10 MG 1 tablet in the morning Orally Once a day Active Midodrine HCl 2.5 MG 1 tablet Orally Twi ce a day for 90 days 11/21/2024 Active Famotidine 40 MG 1 tablet at bedtime as needed Orally twice a day Active Cholecalciferol 50 MCG (1999) 1 capsule Orally Once a day Active clonazePAM 0.5 MG 1 tablet Orally Once a day prn As needed Active Lansoprazole 30 MG 1 capsule before a meal Orally twice a day Active Levothyroxine Sodium 75 MCG 1 tablet in the morning on an empty stomach Orally Once a day except Monday Active Fludrocortisone Acetate 0.1 MG 1 tablet [...] full tablet Orally Once a day Active buPROPion HCl ER (XL) 300 MG 1 tablet in the morning Orally Once a day Active Cromolyn Sodium 100 MG/5ML 2 ampules [...] Status Risk Notes Problem Dissociative identity disorder (28689230) 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) Active confirmed Problem Borderline personality disorder (30652103) Borderline personality disorder (F60.3) Active confirmed Problem Anxiety (51309351) Anxiety (F41.9) Active confi rmed Problem Depression (580361077) Depression (F32.9) Active confirmed Problem Migraine with aura (5625601) Migraine with aura (G43.109) Active confirmed Problem Posttraumatic stress disorder (78256307) PTSD (post-traumatic stress disorder) (F43.10) Active confirmed Problem Attention deficit hyperactivity disorder (290804476) ADHD (attention deficit hyperactivity disorder) (F90.9) Active confirmed Problem Nitza's disease (78858067) 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 Problem Restless legs (91459898) RLS (restless legs syndrome) (G25.81) Active confirmed Problem Polycystic ovary syndrome (disorder) (894615012) PCOS (polycystic ovarian syndrome) (E28.2) Active confirmed Problem Vitamin D deficiency (41795671) Vitamin D insufficiency (E55.9) Active confirmed Problem Dysmenorrhea (762007440) Dysmenorrhea (N94.6) Active confirmed Problem Chest pain (93226709) Chest pain (R07.9) Active confirmed Problem Chronic fatigue syndrome (02204185) Chronic fatigue (R53.82) Active confirmed Problem Gastroesophageal reflux disease without esophagitis (562041200) Gastroesophageal reflux disease without esophagitis (K21.9) Active confirmed Problem Autism (35520740) Autism (F84.0) Active confirm ed Problem Postural orthostatic tachycardia syndrome (disorder) (626488866) POTS (postural orthostatic tachycardia syndrome) (I49.8) Active confirmed Problem Mast cell activation syndrome (45008317171055483) 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 Problem 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 Vital Signs Heart Rate 82 /min 11/21/2024 ORTHOS: SITTING 118/78 hr 70 sTANDING 110/78 hr 84.....VERY WINDED STANDING Temperature 98.0 degrees Fahrenheit 11/21/2024 ORTHOS: SITTING 118/78 hr 70 sTANDING 110/78 hr 84.....VERY WINDED STANDING Blood pressure diastolic 82 mm Hg 11/21/2024 ORTHOS: SITTING 118/78 hr 70 sTANDING 110/78 hr 84.....VERY WINDED STANDING Height 62 in 11/21/2024 ORTHOS: SITTING 118/78 hr 70 sTANDING 110/78 hr 84.....VERY WINDED STANDING Blood pressure systolic 122 mm Hg 11/21/2024 ORTHOS: SITTING 118/78 hr 70 sTANDING 110/78 hr 84.....VERY WINDED STANDING Weight 160 lbs 11/21/2024 ORTHOS: SITTING 118/78 hr 70 sTANDING 110/78 hr 84.....VERY WINDED STANDING BMI 29.26 kg/m2 11/21/2024 ORTHOS: SITTING 118/78 hr 70 sTANDING 110/78 hr 84.....VERY WINDED STANDING Encounters Encounter Location Date Provider Diagnosis [facility] [employer] [address] [address] 11/21/2024 Alida Jain Nitza's disease E06.3 ; POTS (postural orthostatic tachycardia syndrome) I49.8 and Genna-Danlos syndrome Q79.60 [facility] [employer] [address] [place] [address] 11/21/2024 Alida Jain Assessments Encounter Date Diagnosis (ICD Code) Assessment [...] Q79.60) [facility] hypotension and postural orthostatic tachycardia syndrome may be a consequence of EDSEchocardiograms in the past most recently in 2022 [place] did not show evidence of mitral valve [...] for aortic root dilation Plan Of Treatment Next Appt Details Provider Name:Alida diana, 06/17/2025 01:00:00 PM, [address] [facility], [address], [place], [address], Insurance Providers Payer Name Payer Address Payer Phone Subscriber Number Group Number Insured Name Patient Relationship to Insured Coverage Start Date Coverage End Date [employer] [address] [place] [id number] Chanelle Vallecillo Self - patient is the insured MEDICARE [address] [place], [place] [id number] Chanelle Vallecillo Self - patient is the insured [employer] [address] [place] [address] [id number] Chanelle Vallecillo Self - patient is the insured Medical (General) History Medical History History ICD Code Chest pain R07.9 Chronic fatigue R53.82 Nitza's disease E06.3 PTSD (post-traumatic stress disorder) F4 3.10 Vitamin D insufficiency E55.9 Dissociative identity disorder F44.81 Gastroesophageal reflux disease without esophagitis K21.9 Genna-Danlos syndrome Q79.60 Dysmenorrhea N94.6 POTS (postural orthostatic tachycardia s yndrome) I49.8 Borderline personality disorder F60.3 Mast cell activation syndrome D89.40 PCOS (polycystic ovarian syndrome) E28.2 Migraine with aura G43.109 ADHD (attention deficit hyperactivity di sorder) F90.9 Autism F84.0 Depression F32.9 Anxiety F41.9 RLS (restless legs syndrome) G25.81 Surgical History Surgery Date(Month/Year) gall bladder 2014 lithotripsy port placement Hospitalization History Reason Date(Month/Year) sx related
[2024-11-25 17:43] LABS: Alanine Aminotransferase 20 U/L (0-31); Albumin Level 3.8 g/dL (3.5-5.0); Alkaline Phosphatase 75 U/L (39-117); Anion Gap 8 (12-20); Aspartate Amino Transferase 23 U/L (5-31); Bilirubin Total 0.4 mg/dL (0.0-1.0); Blood Urea Nitrogen 10 mg/dL (9-16); Calcium 8.4 mg/dL (8.4-10.2); Carbon Dioxide 27 mmol/L (22-29); Chloride 108 mmol/L (96-108); Estimated Glomerular Filt Rate > 60; Glucose Random 83 mg/dL (60-115); Potassium 4.1 mmol/L (3.3-5.1); Sodium 139 mmol/L (135-145); Total Protein 6.6 g/dL (6.5-8.0)
== END 2024-11-25 16:18 | disposition home or self-care (01) ==
LOC: HO.LABR 16:17
PROVIDERS: PCP Nurse Practitioner Family; Visit Provider Nurse Practitioner Family
DX: G90.A Postural orthostatic tachycardia syndrome [POTS] (principal)
CPT/HCPCS: 36415; 80053

== ENCOUNTER 2024-12-13 16:06 | Outpatient (REF) | payer OTHER, MEDICARE, MEDICAID, SELFPAY ==
--- OUTSIDE RECORDS SUMMARY | 2024-12-13 16:10 | XMS_ITS | Encounter Summary ---
Author Organization [employer] Address [address] [place] [address] Care Team Providers Care Computational Mathematician Name Role Phone Ivy Mantilla NP Primary Care Provider Reason for Referral * Consultation (Routine) - Authorized Specialty Diagnoses / Procedures Referred By Contact Referred To Contact Interventional Radiology Diagnoses Gastroparesis POTS (postural orthostatic tachycardia syndrome) Ivy Mantilla NP [address] [place] [address] Phone: tel:[phone] fax:[phone] [facility] [place] [address] [place], [place] Phone: tel: fax: Referral ID Status Reason Start Date Expiration Date Visits Requested Visits Authorized [id number] Authorized Specialty Services Required 09/10/2024 09/10/2025 1 1 Encounter Details Date Type Department Care Team (Late Contact Info) Description 09/06/2024 Telephone [facility] [address] [place] [phone] Ivy Mantilla NP [address] [place] [address] Social History Tobacco Use Types Packs/Day Years [...] other and fax it to them at [phone], their call back number is [phone] documented in this encounter Plan of Treatment [...] documented as of this encounter Care Teams Computational Mathematician Relationship Specialty Start Date End Date Ivy Mantilla NP [address] [place] [address] PCP - General Family Medicine 04/12/24 documented as of this encounter
[2024-12-13 17:34] LABS: Alanine Aminotransferase 23 U/L (0-31); Albumin Level 3.7 g/dL (3.5-5.0); Alkaline Phosphatase 82 U/L (39-117); Anion Gap 11 (12-20); Aspartate Amino Transferase 18 U/L (5-31); Bilirubin Total 0.3 mg/dL (0.0-1.0); Blood Urea Nitrogen 8 mg/dL (9-16); Calcium 8.6 mg/dL (8.4-10.2); Carbon Dioxide 26 mmol/L (22-29); Chloride 112 mmol/L (96-108); Estimated Glomerular Filt Rate > 60; Glucose Random 98 mg/dL (60-115); Potassium 4.1 mmol/L (3.3-5.1); Sodium 145 mmol/L (135-145); Total Protein 6.6 g/dL (6.5-8.0)
== END 2024-12-13 16:07 | disposition home or self-care (01) ==
LOC: HO.LABR 16:06
PROVIDERS: PCP Nurse Practitioner Family; Visit Provider Nurse Practitioner Family
DX: G90.A Postural orthostatic tachycardia syndrome [POTS] (principal)
CPT/HCPCS: 36415; 80053

== ENCOUNTER 2024-12-23 16:38 | Outpatient (REF) | payer OTHER, MEDICARE, MEDICAID, SELFPAY ==
--- OUTSIDE RECORDS SUMMARY | 2024-12-23 17:09 | XMS_ITS | Encounter Summary ---
Author Organization [employer] Address [address] [place] [address] Care Team Providers Care Dovetailer Name Role Phone Ivy Mantilla NP Primary Care Provider [phone] Reason for Referral * Consultation (Routine) - Authorized Specialty Diagnoses / Procedures Referred By Contact Referred To Contact Interventional Radiology Diagnoses Gastroparesis POTS (postural orthostatic tachycardia syndrome) Ivy Mantilla NP [address] [place] [address] Phone: tel:[phone] fax:[phone] [facility] [place] [address] [place], [place] Phone: tel: fax: Referral ID Status Reason Start Date Expiration Date Visits Requested Visits Authorized [id number] Authorized Specialty Services Required 09/10/2024 09/10/2025 1 1 Encounter Details Date Type Department Care Team (Late Contact Info) Description 09/06/2024 Telephone [facility] [address] [place] [phone] Ivy Mantilla NP [address] [place] [address] Social History Tobacco Use Types Packs/Day Years [...] other and fax it to them at [phone], their call back number is [phone] documented in this encounter Plan of Treatment [...] documented as of this encounter Care Teams Dovetailer Relationship Specialty Start Date End Date Ivy Mantilla NP [address] [place] [address] PCP - General Family Medicine 04/12/24 documented as of this encounter
[2024-12-23 17:31] LABS: Alanine Aminotransferase 30 U/L (0-31); Albumin Level 4.3 g/dL (3.5-5.0); Alkaline Phosphatase 86 U/L (39-117); Anion Gap 10 (12-20); Aspartate Amino Transferase 18 U/L (5-31); Bilirubin Total 0.4 mg/dL (0.0-1.0); Blood Urea Nitrogen 10 mg/dL (9-16); Calcium 9.1 mg/dL (8.4-10.2); Carbon Dioxide 27 mmol/L (22-29); Chloride 107 mmol/L (96-108); Estimated Glomerular Filt Rate > 60; Glucose Random 90 mg/dL (60-115); Potassium 4.3 mmol/L (3.3-5.1); Sodium 140 mmol/L (135-145); Total Protein 7.2 g/dL (6.5-8.0)
== END 2024-12-23 16:39 | disposition home or self-care (01) ==
LOC: HO.LABR 16:38
PROVIDERS: PCP Nurse Practitioner Family; Visit Provider Nurse Practitioner Family
DX: G90.A Postural orthostatic tachycardia syndrome [POTS] (principal)
CPT/HCPCS: 36415; 80053

== ENCOUNTER 2025-01-08 15:10 | Outpatient (REF) | payer OTHER, MEDICARE, MEDICAID, SELFPAY ==
[2025-01-08 17:01] LABS: Alanine Aminotransferase 11 U/L (0-31); Albumin Level 4.2 g/dL (3.5-5.0); Alkaline Phosphatase 78 U/L (39-117); Anion Gap 7 (12-20); Aspartate Amino Transferase 14 U/L (5-31); Bilirubin Total 0.1 mg/dL (0.0-1.0); Blood Urea Nitrogen 6 mg/dL (9-16); Calcium 8.8 mg/dL (8.4-10.2); Carbon Dioxide 24 mmol/L (22-29); Chloride 112 mmol/L (96-108); Estimated Glomerular Filt Rate > 60; Glucose Random 84 mg/dL (60-115); Potassium 4.2 mmol/L (3.3-5.1); Sodium 139 mmol/L (135-145); Total Protein 7.1 g/dL (6.5-8.0)
--- OUTSIDE RECORDS SUMMARY | 2025-01-08 17:30 | XMS_ITS | Encounter Summary ---
Author Organization [employer] Address [address] [place] [address] Care Team Providers Care Byproducts Supervisor Name Role Phone Ivy Mantilla NP Primary Care Provider [phone] Reason for Referral * Consultation (Routine) - Authorized Specialty Diagnoses / Procedures Referred By Contact Referred To Contact Interventional Radiology Diagnoses Gastroparesis POTS (postural orthostatic tachycardia syndrome) Ivy Mantilla NP [address] [place] [address] Phone: tel:[phone] fax:[phone] [facility] [place] [address] [place], [place] Phone: tel: fax: Referral ID Status Reason Start Date Expiration Date Visits Requested Visits Authorized [id number] Authorized Specialty Services Required 09/10/2024 09/10/2025 1 1 Encounter Details Date Type Department Care Team (Late Contact Info) Description 09/06/2024 Telephone [facility] [address] [place] [phone] Ivy Mantilla NP [address] [place] [address] Social History Tobacco Use Types Packs/Day Years [...] other and fax it to them at [phone], their call back number is [phone] documented in this encounter Plan of Treatment Upcoming Encounters Date Type Department Care Team ([facility] st Contact Info) Description 01/30/2025 10:40 AM EDT Procedure Visit [address] [address] Ivy Mantilla NP [address] [place] [address] 02/13/2025 2:40 PM EDT Office Visit [address] [address] Ivy Mantilla NP [address] [place] [address] Scheduled Referrals Name Type Priority Associated Diagnoses [...] documented as of this encounter Care Teams Byproducts Supervisor Relationship Specialty Start Date End Date Ivy Mantilla NP [address] [place] [address] PCP - General Family Medicine 04/12/24 documented as of this encounter
== END 2025-01-08 15:11 | disposition home or self-care (01) ==
LOC: HO.LABR 15:10
PROVIDERS: PCP Nurse Practitioner Family; Visit Provider Nurse Practitioner Family
DX: G90.A Postural orthostatic tachycardia syndrome [POTS] (principal)
CPT/HCPCS: 36415; 80053

== ENCOUNTER 2025-01-28 16:26 | Outpatient (REF) | payer OTHER, MEDICARE, MEDICAID, SELFPAY ==
--- OUTSIDE RECORDS SUMMARY | 2025-01-28 16:28 | XMS_ITS | Encounter Summary ---
Author Organization [employer] Address [address] [place] [address] Care Team Providers Care Medical Transcription Editor Name Role Phone Ivy Mantilla NP Primary Care Provider [phone] Reason for Referral * Consultation (Routine) - Authorized Specialty Diagnoses / Procedures Referred By Contact Referred To Contact Interventional Radiology Diagnoses Gastroparesis POTS (postural orthostatic tachycardia syndrome) Ivy Mantilla NP [address] [place] [address] Phone: tel:[phone] fax:[phone] [facility] [place] [address] [place], [place] Phone: tel: fax: Referral ID Status Reason Start Date Expiration Date Visits Requested Visits Authorized [id number] Authorized Specialty Services Required 09/10/2024 09/10/2025 1 1 Encounter Details Date Type Department Care Team (Late st Contact Info) Description 09/06/2024 Telephone [facility] [address] [place] [phone] Ivy Mantilla NP [address] [place] [address] Social History Tobacco Use Types Packs/Day Years [...] other and fax it to them at [phone], their call back number is [phone] documented in this encounter Plan of Treatment Upcoming Encounters Date Type Department Care Team ([facility] st Contact Info) Description 01/30/2025 10:40 AM EDT Procedure Visit [address] [address] Ivy Mantilla NP [address] [place] [address] 02/13/2025 2:40 PM EDT Office Visit [address] [address] Ivy Mantilla NP [address] [place] [address] Scheduled Referrals Name Type Priority Associated Diagnoses [...] documented as of this encounter Care Teams Medical Transcription Editor Relationship Specialty Start Date End Date Ivy Mantilla NP [address] [place] [address] PCP - General Family Medicine 04/12/24 documented as of this encounter
--- OUTSIDE RECORDS SUMMARY | 2025-01-28 16:28 | XMS_ITS | Patient Health Record ---
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 Problem Borderline personality disorder (85156593) Borderline personality disorder (F60.3) Active confirmed Problem Anxiety (64304884) Anxiety (F41.9) Active confi rmed Problem Depression (873486890) Depression (F32.9) Active confirmed Problem Migraine with aura (8909552) Migraine with aura (G43.109) Active confirmed Problem Posttraumatic stress disorder (86510689) PTSD (post-traumatic stress disorder) (F43.10) Active confirmed Problem Attention deficit hyperactivity disorder (867377000) ADHD (attention deficit hyperactivity disorder) (F90.9) Active confirmed Problem Nitza's disease (24700310) 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 Problem Restless legs (53880464) RLS (restless legs syndrome) (G25.81) Active confirmed Problem Polycystic ovary syndrome (disorder) (073838202) PCOS (polycystic ovarian syndrome) (E28.2) Active confirmed Problem Vitamin D deficiency (61624478) Vitamin D insufficiency (E55.9) Active confirmed Problem Dysmenorrhea (084065905) Dysmenorrhea (N94.6) Active confirmed Problem Chest pain (99084279) Chest pain (R07.9) Active confirmed Problem Chronic fatigue syndrome (30584972) Chronic fatigue (R53.82) Active confirmed Problem Autism (90930405) Autism (F84.0) Active confirm ed Problem Postural orthostatic tachycardia syndrome (disorder) (904093020) POTS (postural orthostatic tachycardia syndrome) (I49.8) Active confirmed Problem Mast cell activation syndrome (86522653718031572) 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 Problem Genna-Danlos syndrome (982149003) 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 Problem Gastroesophageal reflux disease (638266393) GERD without esophagitis (K21.9) Active confirmed Vital Signs Heart Rate 82 [...] STANDING Encounters Encounter Location Date Provider Diagnosis [address] [address] 11/21/2024 Alida Jain Nitza's disease E06.3 ; POTS (postural orthostatic tachycardia syndrome) I49.8 ; Genna-Danlos syndrome Q79.60 ; GERD without esophagitis K21.9 ; Depression F32.9 ; Anxiety F41.9 ; Migraine with aura G43.109 ; PTSD (post-traumatic stress disorder) F43.10 ; ADHD (attention deficit hyperactivity disorder) F90.9 ; RLS (restless legs syndrome) G25.81 ; PCOS (polycystic ovarian syndrome) E28.2 ; Vitamin D insufficiency E55.9 ; Chest pain R07.9 ; Chronic fatigue R53.82 and Mast cell activation syndrome D89.[address] [place] [id number] 11/21/2024 Alida Jain Assessments Encounter Date Diagnosis (ICD Code) Assessment Notes Treatment Notes Treatment Clinical Notes Section Notes 11/21/2024 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 [...] her gender affirming surgery to evaluate palpitations reviewed hydration with surgery planned and expected exacerbation of pots with anesthesia. 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 Blankenship at the [facility] CenterOrthostatic hypotension and postural orthostatic tachycardia syndrome may be a consequence of EDSEchocardiograms in the past most recently in 2022 did not show evidence of mitral valve prolapse or aortic root dilationPlanEchocardiogra m every 3 years next due in 2025 to monitor for aortic root dilation conservitive treatments in place with med therapy preventive care for injuries. 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 Gastroparesis GERD Meek is sxs with palpitations, fatigue, chronic pain, POTS I will see her back in 6 [...] and screening for aortic root dilation 11/21/2024 Depression (ICD-10 - F32.9) on med therapy and counseling 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 support groups. 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 Gastroparesis GERD Meek is sxs with palpitations, fatigue, chronic pain, POTS I will see her back in 6 [...] and screening for aortic root dilation 11/21/2024 PTSD (post-traumati c stress disorder) (ICD-10 - F43.10) 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 Gastroparesis GERD Meek is sxs with palpitations, fatigue, chronic pain, POTS I will see her back in 6 [...] and screening for aortic root dilation 11/21/2024 ADHD (attention deficit hyperactivity disorder) (ICD-10 - F90.9) reviewed adhd therapy and cv health 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 Gastroparesis GERD Meek is sxs with palpitations, fatigue, chronic pain, POTS I will see her back in 6 [...] and screening for aortic root dilation 11/21/2024 RLS (restless legs syndrome) (ICD-10 - G25.81) ?mag 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 Gastroparesis GERD Meek is sxs with palpitations, fatigue, chronic pain, POTS I will see her back in 6 [...] and screening for aortic root dilation 11/21/2024 PCOS (polycystic ovarian syndrome) (ICD-10 - E28.2) reviewed pcos and cvd 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 Gastroparesis GERD Meek is sxs with palpitations, fatigue, chronic pain, POTS I will see her back in 6 [...] and screening for aortic root dilation 11/21/2024 Vitamin D insufficiency (ICD-10 - E55.9) on supps reviewed vit d def and cv health 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 Gastroparesis GERD Meek is sxs with palpitations, fatigue, chronic pain, POTS I will see her back in 6 [...] and screening for aortic root dilation 11/21/2024 Chest pain (ICD-10 - R07.9) hEDS 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 Gastroparesis GERD Meek is sxs with palpitations, fatigue, chronic pain, POTS I will see her back in 6 [...] and screening for aortic root dilation 11/21/2024 Chronic fatigue (ICD-10 - R53.82) reviewed sleep and ctd and overall health 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 Gastroparesis GERD Meek is sxs with palpitations, fatigue, chronic pain, POTS I will see her back in 6 [...] and screening for aortic root dilation 11/21/2024 Mast cell activation syndrome (ICD-10 - D89.40) understands various triggers working with medical team 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 Gastroparesis GERD Meek is sxs with palpitations, fatigue, chronic pain, POTS I will see her back in 6 [...] and screening for aortic root dilation 11/21/2024 Other Total Time spent: 62 minutes: - Counseling and educating the patient/family/caregiver: 26 minutes - Documenting clinical information in the EHR or other health record:18 minutes - Performing a medically appropriate examination and /or evaluation: 6 minutes - Obtaining and/or reviewing separately obtained history: 10 minutes - Ordering medications, test, or procedures: 2 minutes - Referring and communicating with other health care providers: 0 minutes - Independently interpreting results and communicating results to the patient/family/caregiver: 0 minutes 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 Gastroparesis GERD Meek is sxs with palpitations, fatigue, chronic pain, POTS I will see her back in 6 [...] for aortic root dilation Plan Of Treatment Pending Test Test Name Order Date EKG 11/21/2024 Next Appt Details Provider Name:Alida diana, 06/17/2025 01:00:00 PM, [address] [place] [address], [address], [place], [address], Insurance Providers Payer Name Payer Address Payer Phone Subscriber Number Group Number Insured Name Patient Relationship to Insured Coverage Start Date Coverage End Date [employer] [address] [place], [place] [id number] Chanelle Vallecillo Self - patient is the insured [employer] [address] [place] [phone] [id number] Chanelle Vallecillo Self - patient is the insured MEDICARE [address] [place], [place] [id number] [phone] [id number] Chanelle Vallecillo Self - patient is the [...]
[2025-01-28 17:02] LABS: Alanine Aminotransferase 10 U/L (0-31); Albumin Level 4.0 g/dL (3.5-5.0); Alkaline Phosphatase 69 U/L (39-117); Anion Gap 10 (12-20); Aspartate Amino Transferase 16 U/L (5-31); Blood Urea Nitrogen 6 mg/dL (9-16); Calcium 8.6 mg/dL (8.4-10.2); Carbon Dioxide 22 mmol/L (22-29); Chloride 110 mmol/L (96-108); Estimated Glomerular Filt Rate > 60; Potassium 3.9 mmol/L (3.3-5.1); Sodium 138 mmol/L (135-145); Total Protein 6.6 g/dL (6.5-8.0)
== END 2025-01-28 16:27 | disposition home or self-care (01) ==
LOC: HO.LABR 16:26
PROVIDERS: PCP Nurse Practitioner Family; Visit Provider Nurse Practitioner Family
DX: G90.A Postural orthostatic tachycardia syndrome [POTS] (principal)
CPT/HCPCS: 36415; 80053

== ENCOUNTER 2025-06-25 14:56 | Outpatient (REF) | payer OTHER, MEDICARE, MEDICAID, SELFPAY ==
--- OUTSIDE RECORDS SUMMARY | 2024-03-21 08:20 | XMS_ITS ---
Author Organization [facility], [facility] Address [address] [place] [address] Care Team Providers Care Gear Machine Operator General Name Role Phone Zaynab Tucker Primary Care Provider Alida Galan Unavailable [phone] REASON FOR VISIT new patient Encounters Encounter Location Date Provider Diagnosis [facility], [address] [address] 03/21/2024 Alida Jain Plan Of Treatment No Information Progress Notes * Nydia VALLECILLOhDOB:2000 (24 yo F)Acc No.[id number]:03/21/2024 Progress Notes Patient: Chanelle FRANK Provider: Jameel Jain D.O. :2000 A ge:23 Y S ex:Female Date:03/21/2024 Address:[address] [place], [place] [id number] Pcp:Zaynab Hester Subjective: * Chief Complaints: * 1 . New patient. * Medical History: Objective: * Vitals: Assessment: Plan: * Treatment: * * Electronic signature of Jose Jain DO on 06/25/2025 at 05:56 PM EST Sign off status: Pending * Provider: Jameel Jain D.O. Date: 0 03/21/2024 Generated for Cheyenne vargas/Kenan/eTransmitting on: 1 08/26/2024 05:56 PM EST
--- OUTSIDE RECORDS SUMMARY | 2024-05-30 05:00 | XMS_ITS ---
Author Organization [facility] Address [address] [place] [address] Care Team Providers Care Beating Machine Operator Name Role Phone Zaynab Tucker Primary Care Provider Alida Galan Unavailable [phone] Allergies Allergen (clinical drug ingredient) Drug/Non Drug Allergy documented on EMR Reaction Allergy Type Onset Date Status medroxyprogesterone Depo-Provera Unknown Drug Allergy Active cefazolin Cefazolin Unknown Drug Allergy Active gentamicin Gentamicin Unknown Drug Allergy Activ e REASON FOR VISIT 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, 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, 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 Medications Medication SIG (Take, Route, Frequency, Duration) Notes Start Date End Date Status Dextroamphetamine Sulfate 10 MG 1 tablet in the morning Orally Once a day Active buPROPion HCl ER (XL) 300 MG 1 tablet in the morning Orally Once a day Active Cetirizine HCl 10 MG 1 tablet Orally Onc e a day Active Cholecalciferol 50 MCG (1999 UT) 1 capsule Orally Once a day Active clonazePAM 1 MG 1 tablet Orally Once a day As needed Active Famotidine 20 MG 1 tablet at bedtime as needed Orally Once a day Active Fludrocortisone Acetate 0.1 MG 1 tablet Orally Once a day Active Fluoxetine 20 MG 1 capsule Orally Onc e a day Active Lansoprazole 30 MG 1 capsule before a meal Orally Once a day Active Levothyroxine Sodium 75 MCG 1 tablet in the morning on an empty stomach Orally Once a day Active Sodium Chloride 1 GM as directed Orally Active traZODone HCl 100 MG 1 tablet at bedtime Orally Once a day Active Prucalopride Succinate 2 MG 1 tablet Ora lly Once a day Active Social History Tobacco Use: Social History Observation Description Date Details (start date - stop date) Former Smoker NA - NA Tobacco Control (Standard) Question Answer Notes Tobacco use: Former smoker Problems Problem Type SNOMED Code ICD Code Onset Dates Problem Status W/U Status Risk Notes Problem Chest pain (99394836) Chest pain (R07.9) Active confirmed Problem Chronic fatigue syndrome (58413933) Chronic fatigue (R53.82) Active confirmed Problem Nitza's disease (70768494) 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 Problem Posttraumatic stress disorder (17791457) PTSD (post-traumatic stress disorder) (F43.10) Active confirmed Problem Vitamin D deficiency (77567521) Vitamin D insufficiency (E55.9) Active confirmed Problem Dissociative identity disorder (73293373) 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) Active confirmed Problem Genna-Danlos syndrome (758471086) 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 Problem Dysmenorrhea (239680168) Dysmenorrhea (N94.6) Active confirmed Problem Postural orthostatic tachycardia syndrome (disorder) (300986721) POTS (postural orthostatic tachycardia syndrome) (I49.8) Active confirmed Problem Borderline personality disorder (74949223) Borderline personality disorder (F60.3) Active confirmed Encounters Encounter Location Date Provider Diagnosis [address] [address] 05/30/2024 Alida Jain Plan Of Treatment No Information Progress Notes * María Elena VALLECILLOOB:2000 (24 yo F)Acc No.[id number]:05/30/2024 Progress Notes Patient: Chanelle FRANK Provider: Jameel Jain D.O. :2000 A ge:23 Y S ex:Female Date:05/30/2024 Address:[address] [place], [place] [address] Pcp:Zaynab Hester Subjective: * Chief Complaints: * 1 . 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 * Medical History: C hest pain, Chronic fatigue, Nitza's disease, PTSD (post-traumatic stress disorder), Vitamin D insufficiency, Dissociative identity disorder, Gastroesophageal reflux disease without esophagitis, Genna-Danlos syndrome, Dysmenorrhea, POTS (postural orthostatic tachycardia syndrome), Borderline personality disorder. * Surgical History: D enies Past Surgical History. * Hospitalization/Major Diagno stic Procedure: D enies Past Hospitalization. * Family History: M other: unknown, LupusFibrocystic breast disease. P aternal Grand Mother: unknown, Breast cancer. P aternal aunt: unknown, Breast cancer. * Social History: T obacco Use: T obacco Control (Standard) T obacco use: F ormer smoker. D rugs/Alcohol: D o you smoke marijuana?: Admits. Do you drink alcohol?: Yes, occasionally. * Medications: T aking traZODone HCl 100 MG Tablet 1 tablet at bedtime Orally Once a day , Taking Sodium Chloride 1 GM Tablet as directed Orally , Taking Prucalopride Succinate 2 MG Tablet 1 tablet Orally Once a day , Taking Levothyroxine Sodium 75 MCG Tablet 1 tablet in the morning on an empty stomach Orally Once a day , Taking Lansoprazole 30 MG Capsule Delayed Release 1 capsule before a meal Orally Once a day , Taking Fluoxetine 20 MG Capsule 1 capsule Orally Once a day , Taking Fludrocortisone Acetate 0.1 MG Tablet 1 tablet Orally Once a day , Taking Famotidine 20 MG Tablet 1 tablet at bedtime as needed Orally Once a day , Taking Dextroamphetamine Sulfate 10 MG Tablet 1 tablet in the morning Orally Once a day , Taking clonazePAM 1 MG Tablet 1 tablet Orally Once a day As needed, Taking Cholecalciferol 50 MCG (2000 UT) Capsule 1 capsule Orally Once a day , Taking Cetirizine HCl 10 MG Tablet 1 tablet Orally Once a day , Taking buPROPion HCl ER (XL) 300 MG Tablet Extended Release 24 Hour 1 tablet in the morning Orally Once a day , Medication List reviewed and reconciled with the patient * Allergies: C efazolin, Gentamicin, Depo-Provera. Objective: * Vitals: Assessment: Plan: * Treatment: * * Electronic signature of Jose Jain DO on 06/25/2025 at 05:56 PM EST Sign off status: Pending * Provider: Jameel Jain D.O. Date: 07/30/2023 Generated for Cheyenne vargas/Kenan/Dariana on: 08/26/2024 05:56 PM EST
--- OUTSIDE RECORDS SUMMARY | 2025-06-17 08:00 | XMS_ITS ---
Author Organization [facility] [employer] [facility] Address [address] [address] Care Team Providers Care Gear Roller Name Role Phone Zaynab Tucker Primary Care Provider Diane Alida Bee Unavailable [phone] REASON FOR VISIT 6mo prov unavailable Encounters Encounter Location Date Provider Diagnosis [facility] Cardiology [address] [address] 06/17/2025 Alida Jain Plan Of Treatment No Information Progress Notes * Nydia VALLECILLOhDOB:2000 (24 yo F)Acc No.[id number]:06/17/2025 Patient: Chanelel FRANK Provider: Jameel Jain D.O. :2000 A ge:24 Y S ex:Female Date:06/17/2025 Address:[address] [place], [place] [id number] Pcp:Zaynab Hester Subjective: * Chief Complaints: * 1 . 6mo prov unavailable. * Medical History: Objective: * Vitals: Assessment: Plan: * Treatment: * * Electronic signature of Jose Jain DO on 06/25/2025 at 05:55 PM EST Sign off status: Pending * Provider: Jameel Jain D.O. Date: 08/17/2024 Generated for Cheyenne vargas/Kenan/Luisitting on: 08/26/2024 05:55 PM EST
[2025-06-25 16:25] LABS: Alanine Aminotransferase 11 U/L (0-31); Albumin Level 4.2 g/dL (3.5-5.0); Alkaline Phosphatase 80 U/L (39-117); Anion Gap 8 (12-20); Aspartate Amino Transferase 16 U/L (5-31); Blood Urea Nitrogen 5 mg/dL (9-16); Calcium 9.0 mg/dL (8.4-10.2); Carbon Dioxide 25 mmol/L (22-29); Chloride 109 mmol/L (96-108); Estimated Glomerular Filt Rate > 60; Potassium 4.0 mmol/L (3.3-5.1); Sodium 138 mmol/L (135-145); Total Protein 6.9 g/dL (6.5-8.0)
--- OUTSIDE RECORDS SUMMARY | 2025-06-25 17:55 | XMS_ITS | Patient Health Record ---
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) Active confirmed Problem Borderline personality disorder (67160625) Borderline personality disorder (F60.3) Active confirmed Problem Anxiety (31327963) Anxiety (F41.9) Active confi rmed Problem Depression (448289696) Depression (F32.9) Active confirmed Problem Migraine with aura (1684718) Migraine with aura (G43.109) Active confirmed Problem Posttraumatic stress disorder (26135665) PTSD (post-traumatic stress disorder) (F43.10) Active confirmed Problem Attention deficit hyperactivity disorder (796914808) ADHD (attention deficit hyperactivity disorder) (F90.9) Active confirmed Problem Nitza's disease (28409998) 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 Problem Restless legs (31190090) RLS (restless legs syndrome) (G25.81) Active confirmed Problem Polycystic ovary syndrome (disorder) (265876654) PCOS (polycystic ovarian syndrome) (E28.2) Active confirmed Problem Vitamin D deficiency (05081619) Vitamin D insufficiency (E55.9) Active confirmed Problem Dysmenorrhea (322777869) Dysmenorrhea (N94.6) Active confirmed Problem Chest pain (91174775) Chest pain (R07.9) Active confirmed Problem Chronic fatigue syndrome (99460804) Chronic fatigue (R53.82) Active confirmed Problem Autism (47444203) Autism (F84.0) Active confirm ed Problem Postural orthostatic tachycardia syndrome (disorder) (793023395) POTS (postural orthostatic tachycardia syndrome) (I49.8) Active confirmed Problem Mast cell activation syndrome (56453771639597875) 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 Problem Genna-Danlos syndrome (425613032) 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 Problem Gastroesophageal reflux disease (787697802) GERD without esophagitis (K21.9) Active confirmed Vital [...] STANDING Encounters Encounter Location Date Provider Diagnosis [address] [address] 11/21/2024 Alida Jain Nitza's disease E06.3 ; [...] R53.82 and Mast cell activation syndrome D89.[address] [place] [phone] 11/21/2024 Alida Jain Assessments Encounter Date Diagnosis [...] [facility] every 3 years, due in 2025 [...] Postural orthostatic tachycardia syndrome Genna-Danlos syndrome hypermobility Ntiza's 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 Gastroparesis GERD Meek is [...] Test Test Name Order Date EKG 11/21/2024 Insurance Providers Payer Name Payer Address Payer Phone Subscriber Number Group Number Insured Name Patient Relationship to Insured Coverage Start Date Coverage End Date [employer] [address] [place], [place] [id number] Chanelle Vallecillo Self - patient is the insured [facility] [address] [place] [address] [phone] [id number] Chanelle Vallecillo Self - patient is the insured MEDICARE [address] [place], [place] [id number] [phone] [id number] Chanelle Vallecillo Self - patient is the [...]
== END 2025-06-25 14:57 | disposition home or self-care (01) ==
LOC: HO.LABR 14:56
PROVIDERS: PCP Nurse Practitioner Family; Visit Provider Nurse Practitioner Family
DX: G90.A Postural orthostatic tachycardia syndrome [POTS] (principal)
CPT/HCPCS: 36415; 80053